=== PATIENT | male | born 1965 | race Caucasian/White ===

== ENCOUNTER 2016-08-09 16:07 | Emergency (ER) | payer MEDICAID, MEDICARE ==
--- NOTE | 2016-08-09 16:27 | Emergency Department Record ---
History of Present Illness - General Chief complaint: Swelling of legs Stated complaint: MAY HAVE BLOOD CLOT Time Seen by Provider: 08/09/16 16:16 Source: Patient Mode of Arrival: Ambulatory Limitations: No limitations - History of Present Illness Initial comments: The patient is here due to having L lower leg pain for almost 2 weeks. The pain is intermittently throbbing and located mainly over the anterior L lower leg proximal > distal. He denies any calf, posterior knee and thigh pain. The patient did notice slight swelling to the L lower leg which he states is new. He does have a hx of multiple blood clots in the L leg in the past. There is no reported CP, SOB, [place] or fever. The patient did have a pancreatitis attack 2 weeks ago which kept him in bed and that has precipitated his attacks in the past. MD Complaint: Extremity pain Onset/Timin -: Week(s) Location: Left, Lower Leg History of Same: Yes Radiation: Distal Severity scale (1-10): 2 Quality: Aching Consistency: Constant Improves with: Movement Worsens with: Rest Associated Symptoms: Denies other symptoms - Related Data Home Medications Medication Instructions Recorded Confirmed Last Taken Amiloride HCl 5 mg PO BID 07/19/13 08/09/16 06/10/15 5 MG Aspirin 81 mg PO DAILY 07/19/13 08/09/16 06/10/15 81 MG Atenolol 25 mg PO DAILY 07/19/13 08/09/16 06/10/15 25 MG Fenofibrate Nanocrystallized 145 mg PO DAILY 07/19/13 08/09/16 06/10/15 [Tricor] 145 MG Hydromorphone HCl [Dilaudid] 4 mg PO ASDIR PRN 07/19/13 08/09/16 06/10/15 4 MG Lipase/Protease/Amylase 3 tab PO WMEALS 07/19/13 08/09/16 06/10/15 [Pancrelipase 5,000 Dr Capsule] 4 TAB Metoclopramide HCl [Reglan] 20 mg PO QHS 07/19/13 08/09/16 06/10/15 20 MG Morphine Sulfate [Ms Contin] 200 mg PO BID 07/19/13 08/09/16 06/10/15 200 MG Omeprazole 20 mg PO 0700,2200 07/19/13 08/09/16 06/10/15 20 MG Ondansetron HCl [Zofran] 8 mg PO BID 07/19/13 08/09/16 06/10/15 8 MG Potassium Citrate [Potassium 20 meq PO QAM 07/19/13 08/09/16 06/10/15 Citrate ER] 30 MEQ Prochlorperazine Maleate 5 mg PO BID 07/19/13 08/09/16 06/10/15 5 MG Morphine Sulfate [Ms Contin] 60 mg PO BID 07/21/13 08/09/16 06/10/15 60 MG Previous Rx's Medication Instructions Recorded Ondansetron [Zofran Odt] 4 mg PO Q8H #14 tab.rapdis 11/24/14 Allergies Allergy/AdvReac Type Severity Reaction Status Date / Time fentanyl [From Duragesic] AdvReac Severe HYPERSENSIT Verified 08/09/16 16:15 IVITY Travel Screening - Travel/Exposure Within Last 30 Days Have you traveled within the last 30 days?: No Review of Systems Constitutional: Denies: Chills, Fever Eyes: Denies: Eye discharge ENT: Denies: Congestion Respiratory: Denies: Cough, Dyspnea Past Medical History - SOCIAL HISTORY Smoking Status: Never smoker Alcohol Use: None Drug Use: None - RESPIRATORY Hx Respiratory Disorders: No - CARDIOVASCULAR Hx Cardio Disorders: Yes Hx Deep Vein Thrombosis: Yes - NEURO Hx Neuro Disorders: No - GI Hx GI Disorders: Yes Hx Abdominal Pain: Yes Hx Nausea/Vomiting: Yes Hx Pancreatitis: Yes Comment:: pancreatitis - Hx Genitourinary Disorders: Yes Hx Kidney Stones: Yes - ENDOCRINE Hx Endocrine Disorders: No - MUSCULOSKELETAL Hx Musculoskeletal Disorders: No - PSYCH Hx Psych Problems: Yes Hx Depression: Yes - HEMATOLOGY/ONCOLOGY Hx Hematology/Oncology Disorders: No Family Medical History Any Significant Family History?: Yes Hx Alcohol Use: Father Hx Anxiety: Mother Hx Cancer: Grandparents Hx Heart Disease: Father Hx HTN: Grandparents Physical Exam - General General Appearance: Alert, Oriented x3, Cooperative, No acute distress - Head Head exam: Atraumatic, Normocephalic, Normal inspection - Eye Eye exam: Normal appearance, PERRL - Neck Neck exam: Normal inspection, Full ROM. negative: Tenderness - Respiratory Respiratory exam: Normal lung sounds bilaterally. negative: Respiratory distress - Cardiovascular Cardiovascular Exam: Regular rate, Normal rhythm, Normal heart sounds - GI/Abdominal GI/Abdominal exam: Soft, Normal bowel sounds. negative: Tenderness - Extremities Extremities exam: Normal inspection (There may be trace L lower extremity edema compared to the R but it is quite subtle.), Full ROM, Normal capillary refill, Other (The L lower leg is NVI with normal pulses.). negative: Calf tenderness, Joint swelling, Pedal edema, Tenderness (There is no thigh, posterior knee or calf tenderness.) Course Vital Signs 08/09/16 16:10 Temperature 98.5 F Pulse Rate 63 Respiratory 20 Rate Blood Pressure 139/79 Pulse Ox 99 - Reevaluation(s) Reevaluation #1: The patient is doing very well at this time. His leg is presently not painful. I did explain to him the Doppler test does NOT demonstrate a DVT. He is to continue his regular pain medicines and see his PCP next week if needed. 08/09/16 17:51 Medical Decision Making - Data Complexity MDM Data: X-Ray Ordered and/or Reviewed - Radiology Data Radiology results: Report reviewed (L leg Doppler: Neg) Disposition Disposition: Discharge Clinical Impression: Leg pain, left Disposition: Home, Self-Care Condition: (1) Good Instructions: Leg Pain (ED) Additional Instructions: Please continue your regular pain medicines as needed. Please see your PCP if needed next week if not better. Return to the ER for any increasing pain, swelling, fever or redness. Forms: Patient Portal Access Time of Disposition: 17:51
--- NOTE | 2016-08-12 11:17 | US VENOUS DOPPLER REPORT ---
DATE: 08/09/2016 at 4:28 p.m. EXAM: VENOUS DOPPLER ULTRASOUND OF THE LOWER LOWER EXTREMITY. HISTORY: THROBBING PAIN IN THE LEFT LEG. HISTORY OF DVT. TECHNIQUE: Venous Doppler ultrasound of the left lower extremity was performed using color flow and spectral analysis Doppler. Compression and flow augmentation maneuvers were used as well in the thigh and popliteal regions. COMPARISON: No prior venous Doppler ultrasound with which to compare. FINDINGS: Venous Doppler ultrasound of the left lower extremity is negative. No DVT identified from the inguinal region down to the ankle. Flow augmentation and compressibility were evident in the thigh and popliteal regions. IMPRESSION: NEGATIVE VENOUS DOPPLER ULTRASOUND OF THE LEFT LOWER EXTREMITY WITH NO DVT IDENTIFIED. JOB NUMBER: [id number] [facility]
== END 2016-08-09 17:57 | disposition home or self-care (01) ==
LOC: ER 16:07
DX: M79.669 Pain in unspecified lower leg (principal)
CPT/HCPCS: 99283

== ENCOUNTER 2017-02-12 00:45 | Inpatient (IN) | payer MEDICARE ==
[~2017-02-12 00:45] MED LIST: 0.9 % SODIUM CHLORIDE 1000ML 1,000 ML IV SCH; ONDANSETRON HCL IV 4 MG/2 ML VIAL IVP ONE
[2017-02-12] MEDS ORDERED: HYDROMORPHONE HCL 1 MG/ML SYRINGE IVP ONE ×2 (00:55→01:50)
--- NOTE | 2017-02-12 00:59 | Emergency Department Record ---
History of Present Illness - General Stated Complaint: PANCREATITIS Time Seen by Provider: 02/12/17 00:55 Source: Patient Mode of Arrival: EMS Limitations: No limitations - History of Present Illness Initial Comments: 51 yo male presents to ED for evaluation of nausea, vomiting, and abdominal pain symptoms that began approximately 3 days ago. Patient reports similar symptoms previously related to pancreatitis. Patient reports that his chronic pancreatitis results from CF, reports previous cholecystectomy, and does not drink alcohol. Patient denies fevers, chills, or other recent illness. MD Complaint: Abdominal pain Onset/Timin -: Days(s) Location: Epigastric Radiation: None Migration to: No migration Severity: Moderate Quality: Sharp Consistency: Constant Improves With: Nothing Worsens With: Nothing Associated Symptoms: Nausea, Vomiting - Related Data Previous Rx's Medication Instructions Recorded Ondansetron [Zofran Odt] 4 mg PO Q8H #14 tab.rapdis 11/24/14 Allergies Allergy/AdvReac Type Severity Reaction Status Date / Time fentanyl [From Duragesic] AdvReac Severe HYPERSENSIT Verified 08/09/16 16:15 IVITY Review of Systems Constitutional: Denies: Chills, Fever, Malaise, Night sweats Eyes: Denies: Eye discharge, Eye pain ENT: Denies: Congestion, Ear pain, Epistaxis Respiratory: Denies: Cough, Dyspnea Cardiovascular: Denies: Chest pain, Dyspnea on exertion Endocrine: Denies: Fatigue, Heat or cold intolerance Gastrointestinal: Reports: Abdominal pain, Nausea, Vomiting. Denies: Constipation Genitourinary: Denies: Incontinence, Retention Musculoskeletal: Denies: Arthralgia, Back pain, Gout, Joint swelling Skin: Denies: Bruising, Change in color Neurological: Denies: Abnormal gait, Confusion, Headache, Tingling Psychiatric: Denies: Anxiety Hematological/Lymphatic: Denies: Anemia, Blood Clots Past Medical History - SOCIAL HISTORY Smoking Status: Never smoker Drug Use: None - RESPIRATORY Hx Respiratory Disorders: No - CARDIOVASCULAR Hx Cardio Disorders: Yes Hx Deep Vein Thrombosis: Yes - NEURO Hx Neuro Disorders: No - GI Hx GI Disorders: Yes Hx Abdominal Pain: Yes Hx Nausea/Vomiting: Yes Hx Pancreatitis: Yes Comment:: pancreatitis - Hx Genitourinary Disorders: Yes Hx Kidney Stones: Yes - ENDOCRINE Hx Endocrine Disorders: No - MUSCULOSKELETAL Hx Musculoskeletal Disorders: No - PSYCH Hx Psych Problems: Yes Hx Depression: Yes - HEMATOLOGY/ONCOLOGY Hx Hematology/Oncology Disorders: No Family Medical History Hx Alcohol Use: Father Hx Anxiety: Mother Hx Cancer: Grandparents Hx Heart Disease: Father Hx HTN: Grandparents Physical Exam - General General Appearance: Alert, Oriented x3, Cooperative, Moderate distress Limitations: No limitations - Head Head exam: Atraumatic, Normocephalic, Normal inspection Head exam detail: negative: Abrasion, Contusion, Padgett's sign, General tenderness, Hematoma, Laceration - Eye Eye exam: Normal appearance. negative: Conjunctival injection, Periorbital swelling, Periorbital tenderness, Scleral icterus - ENT Ear exam: negative: Auricular hematoma, Auricular trauma Nasal Exam: negative: Active bleeding, Discharge, Dried blood, Foreign body Mouth exam: negative: Drooling, Laceration, Muffled voice, Tongue elevation - Neck Neck exam: Normal inspection. negative: Meningismus, Tenderness - Respiratory Respiratory exam: Normal lung sounds bilaterally. negative: Respiratory distress, Rhonchi, Stridor, Wheezes - Cardiovascular Cardiovascular Exam: Regular rate, Normal rhythm, Normal heart sounds - GI/Abdominal GI/Abdominal exam: Soft, Tenderness (TTP epigastrtic region, the reaminder of the abdominal examination is benign.). negative: Pulsatile mass, Rebound, Rigid - Rectal Rectal exam: Deferred - exam: Deferred - Extremities Extremities exam: Normal inspection. negative: Calf tenderness, Pedal edema, Tenderness - Back Back exam: Denies: CVA tenderness (R), CVA tenderness (L) - Neurological Neurological exam: Alert, Normal gait, Oriented X3 - Psychiatric Psychiatric exam: Normal affect, Normal mood - Skin Skin exam: Other (Ashen appearance on examination) Type of lesion: negative: abrasion Course - Reevaluation(s) Reevaluation #1: 02/12/17 01:39 Labs reviewed, Potassium 2.9, Lipase 91. Labs are otherwise grossly unremarkable for an acute process. Potassium ordered to replace both orally and intravenously. Patient reports improvement in his symptoms overall. Patient also reports that he has been unable to keep his chronic pain medication down for the past 3 days , will admit for further evaluation. Medical Decision Making - Lab Data Result diagrams: 02/12/17 01:17 02/12/17 01:17 Disposition Disposition: Admit Clinical Impression: Opiate withdrawal Abdominal pain Qualifiers: Abdominal location: epigastric Qualified Code(s): R10.13 - Epigastric pain Nausea & vomiting Qualifiers: Vomiting type: unspecified Vomiting Intractability: non-intractable Qualified Code(s): R11.2 - Nausea with vomiting, unspecified Chronic pancreatitis Qualifiers: Pancreatitis type: unspecified pancreatitis type Qualified Code(s): K86.1 - Other chronic pancreatitis Disposition: Still a Patient at [facility] Decision to Admit: Admit from ER Decision to Admit Date: 02/12/17 Decision to Admit Time: : Condition: (2) Stable Time of Disposition: :42 Quality - Quality Measures Quality Measures: N/A - Blood Pressure Screening Does Patient Have Any of the Following: No Blood Pressure Classification: Hypertensive Reading Systolic Measurement: 153 Diastolic Measurement: 70 Screening for High Blood Pressure: < First Hypertensive BP, F/U Documented > [ [id number]] First Hypertensive Follow-up Interventions: Referral to alternative/primary care provider.
[2017-02-12 01:21] LABS: BASO % 0.2 % (0-6); EOS % 0.2 % (0-6); GRAN % 71.2 % (47-80); HEMATOCRIT 39.8 % (42.0-52.0); HEMOGLOBIN 13.9 gm/dl (14.0-18.0); LYMPH % 20.3 % (16-45); MEAN CELL VOLUME 86.1 fl (81-97); MEAN CORPUSCULAR HGB CONC 34.9 g/dl (32-36); MEAN PLATELET VOLUME 10.4 fl (7.4-10.4); MONO % 8.1 % (0-9); PLATELET COUNT 237 K/uL (130-400); RED BLOOD COUNT 4.62 M/uL (4.40-5.70); RED CELL DISTRIBUTION WIDTH 13.2 % (11.5-14.5); WHITE BLOOD COUNT W/O DIFF 4.9 K/uL (4.2-12.2)
[2017-02-12 01:30] LABS: BLOOD UREA NITROGEN 20 mg/dL (6-20); CREATININE 0.8 mg/dL (0.7-1.2); EST GLOMERULAR FILTRATION RATE > 60 mL/min
[2017-02-12 01:32] LABS: GLUCOSE,RANDOM 132 mg/dL (74-109)
[2017-02-12] MEDS ORDERED: SOD CHLOR 0.9% WITH KCL 40MEQ 40 MEQ/1,000 ML IV.SOLN IV ONE (01:34)
[2017-02-12] MEDS ORDERED: POTASSIUM CHLORIDE 20 MEQ TABLET PO ONE (01:34)
[2017-02-12 01:35] LABS: ALB/GLOB RATIO 1.7 (1.1-1.8); ALBUMIN 4.4 g/dL (4.0-5.0); ALKALINE PHOSPHATASE 45 U/L (40-129); ALT/SGPT 16 U/L (<41); AST/SGOT 22 U/L (10.0-50.0); LIPASE 91 U/L (13-60)
[2017-02-12] MEDS: 0.9 % SODIUM CHLORIDE 1000ML 1,000 ML IV PRN ×3 (02:37→18:01)
[2017-02-12] MEDS: HYDROMORPHONE HCL 1 MG/ML SYRINGE IVP PRN ×3 (04:02→08:13)
[2017-02-12] MEDS: METOCLOPRAMIDE HCL 10 MG/2 ML VIAL IVP PRN ×2 (04:59→20:18)
--- NOTE | 2017-02-12 07:16 | History & Physical ---
History of Present Illness - Date of Service Date of Service for History & Physical: 02/12/17 - History of Present Illness Admitting Diagnosis: Nausea/vomiting. Chronic pancreatitis. Opiate withdrawal. Hypokalemia History of Present Illness: Mr. Ortega is a 51 y/o male with history of cystic fibrosis who presents with a 4 day history of nausea, vomiting and abdominal pain. The patient has had 3 -4 episodes of clear non-bloody vomitous which he says has not been controlled even with his daily use of Reglan. The patient has been unable to keep any of his pain medication or hypertension medications down and reports significant body pain. He denies fevers, chills, headache, diarrhea or loss of appetite. The patient has been admitted in the past with similar complaint and has a noted history of chronic pancreatitis as a result of his cystic fibrosis. He is on a significant amount of narcotic pain medication at home and has a high daily requirement. On admission the patient was noted be have hypokalemia but otherwise labs were unremarkable. The patient was started on IV fluids, pain medications and Reglan. He is admitted for electrolyte repletion and acute pain management. On bedside examination this morning the patient appears in moderate distress and is complaining of abdominal pain. Travel Screening - Travel/Exposure Within Last 30 Days Have you traveled within the last 30 days?: No - Travel/Exposure Within Last Year Have you traveled outside the [place] in the last year?: No - Additonal Travel Details Have you been exposed to anyone with a communicable illness?: No - Travel Symptoms Symptom Screening: Vomiting, Stomach Pain, Chills Review of Systems Constitutional: Denies: Chills, Fever, Malaise, Night sweats Eyes: Denies: Eye discharge, Eye pain ENT: Denies: Congestion, Ear pain, Epistaxis Respiratory: Denies: Cough, Dyspnea Cardiovascular: Denies: Chest pain, Dyspnea on exertion Endocrine: Denies: Fatigue, Heat or cold intolerance Gastrointestinal: Reports: Abdominal pain, Nausea, Vomiting. Denies: Constipation Genitourinary: Denies: Incontinence, Retention Musculoskeletal: Denies: Arthralgia, Back pain, Gout, Joint swelling Skin: Denies: Bruising, Change in color Neurological: Denies: Abnormal gait, Confusion, Headache, Tingling Psychiatric: Denies: Anxiety Hematological/Lymphatic: Denies: Anemia, Blood Clots Past Medical History - SOCIAL HISTORY Smoking Status: Never smoker Alcohol Use: None Drug Use: None - RESPIRATORY Hx Respiratory Disorders: No - CARDIOVASCULAR Hx Cardio Disorders: Yes Hx Deep Vein Thrombosis: Yes - NEURO Hx Neuro Disorders: No - GI Hx GI Disorders: Yes Hx Abdominal Pain: Yes Hx Nausea/Vomiting: Yes Hx Pancreatitis: Yes Comment:: pancreatitis - Hx Genitourinary Disorders: Yes Hx Kidney Stones: Yes - ENDOCRINE Hx Endocrine Disorders: No Hx Diabetes: No Hx Thyroid Disease: No - MUSCULOSKELETAL Hx Musculoskeletal Disorders: No - PSYCH Hx Psych Problems: Yes Hx Depression: Yes - HEMATOLOGY/ONCOLOGY Hx Hematology/Oncology Disorders: No Family Medical History Any Significant Family History?: Yes Family Hx Comment (NOT TO BE USED IN PLACE OF ITEMS BELOW): DAUGHTER-CF carrier Hx Alcohol Use: Father Hx Anxiety: Mother Hx Cancer: Grandparents Hx Heart Disease: Father Hx HTN: Grandparents H&P Meds/Allergies - Allergies Allergies: Allergies Allergy/AdvReac Type Severity Reaction Status Date / Time fentanyl [From Duragesic] AdvReac Severe HYPERSENSIT Verified 08/09/16 16:15 IVITY - Home Medications Home Medications Medication Instructions Recorded Confirmed Last Taken Citalopram Hydrobromide [Celexa] 10 mg PO DAILY 02/12/17 02/12/17 Unknown Potassium Citrate [Potassium 40 meq PO QHS 02/12/17 02/12/17 Unknown Citrate ER] - Active Medications Active Medications: Current Medications Hydromorphone HCl (Dilaudid) 1 mg IVP Q2HR PRN PRN Reason: Abdominal Pain Last Admin: 02/12/17 06:02 Dose: 1 mg Sodium Chloride () 1,000 mls @ 125 mls/hr IV .Q8H PRN PRN Reason: LARGE VOLUME IV Last Admin: 02/12/17 02:37 Dose: 125 mls/hr Metoclopramide HCl (Reglan) 10 mg IVP Q6H PRN PRN Reason: NAUSEA Last Admin: 02/12/17 04:59 Dose: 10 mg Ondansetron HCl (Zofran) 4 mg IVP Q4H PRN PRN Reason: NAUSEA Physical Exam - Vital Signs Vital Signs: Vital Signs - Last 24 Hrs Temp Pulse Resp BP Pulse Ox 02/12/17 04:05 98.8 F 74 18 119/77 96 12/12/17 02:30 61 20 02/12/17 02:10 98.4 F 61 20 127/81 96 - General General Appearance: Alert, Oriented x3, Cooperative, Moderate distress Limitations: No limitations - Head Head exam: Atraumatic, Normocephalic, Normal inspection Head exam detail: negative: Abrasion, Contusion, Padgett's sign, General tenderness, Hematoma, Laceration - Eye Eye exam: Normal appearance. negative: Conjunctival injection, Periorbital swelling, Periorbital tenderness, Scleral icterus - ENT Ear exam: negative: Auricular hematoma, Auricular trauma Nasal Exam: negative: Active bleeding, Discharge, Dried blood, Foreign body Mouth exam: negative: Drooling, Laceration, Muffled voice, Tongue elevation - Neck Neck exam: Normal inspection. negative: Meningismus, Tenderness - Respiratory Respiratory exam: Normal lung sounds bilaterally. negative: Respiratory distress, Rhonchi, Stridor, Wheezes - Cardiovascular Cardiovascular Exam: Regular rate, Normal rhythm, Normal heart sounds - GI/Abdominal GI/Abdominal exam: Soft, Tenderness (TTP epigastrtic region, the reaminder of the abdominal examination is benign.). negative: Pulsatile mass, Rebound, Rigid - Rectal Rectal exam: Deferred - exam: Deferred - Extremities Extremities exam: Normal inspection. negative: Calf tenderness, Pedal edema, Tenderness - Back Back exam: Denies: CVA tenderness (R), CVA tenderness (L) - Neurological Neurological exam: Alert, Normal gait, Oriented X3 - Psychiatric Psychiatric exam: Normal affect, Normal mood - Skin Skin exam: Other (Ashen appearance on examination) Type of lesion: negative: abrasion Results - Labs Result Diagrams: 02/12/17 01:17 02/12/17 01:17 VTE H&P Assessment - Risk for VTE Risk for VTE: No Risk Level: Low Risk Assessment Date: 02/12/17 Risk Assessment Time: 10:07 VTE Orders Placed or Will Be Placed: No VTE Reason for No Prophylaxis: Not Indicated Plan - Detailed Diagnosis and Plan (1) Nausea & vomiting Current Visit: Yes Status: Acute Qualifiers: Vomiting type: unspecified Vomiting Intractability: non-intractable Qualified Code(s): R11.2 - Nausea with vomiting, unspecified Base Code: R11.2 - NAUSEA WITH VOMITING, UNSPECIFIED Comment: - pt w/ intractable n/v over the past 4 days. - cont IVF Nacl 0.9% @ 125mL/hr, Reglan 10mg Q6H PRN, Zofran 4mg Q4H PRN - advance diet as tolerated (2) Acute on chronic pancreatitis Current Visit: Yes Status: Acute Base Code: K85.90 - ACUTE PANCREATITIS WITHOUT NECROSIS OR INFECTION, UNSP; K86.1 - OTHER CHRONIC PANCREATITIS Comment: - pt has hx of pancreatitis as a result of CF. No hx of ETOH Hx of cholecystectomy. - lipase 91, cont w/ IVF @ 125mL/hr, Morphine 10mg IV Q6H, Dilaudid 2mg IV Q4H, Reglan, 10mg, Zofran 4mg IV PRN, pt on pancrealipase to be resumed once he can tolerate PO. - repeat labs in the morning and advance diet as tolerated. (3) Hypokalemia, gastrointestinal losses Current Visit: Yes Status: Acute Base Code: E87.6 - HYPOKALEMIA Comment: - K+ 2.9, repleted 80 meq total in ED - recheck K+ and replete as appropriate. (4) Chronic narcotic use Current Visit: Yes Status: Acute Base Code: F11.90 - OPIOID USE, UNSPECIFIED , UNCOMPLICATED Comment: - patient on Dilaudid 4mg QID for breakthrough pain, Morphine extended release 260mg BID - ordered Diluadid 2mg Q4H, Morphine 10mg Q6H scheduled (5) Cystic fibrosis Current Visit: No Status: Chronic Base Code: E84.9 - CYSTIC FIBROSIS, UNSPECIFIED (6) Full code status Current Visit: No Status: Acute Base Code: Z78.9 - OTHER SPECIFIED HEALTH STATUS Comment: - FULL CODE - Disposition - Continuing to monitor patient's progress throughout the day. Advance diet and pain control. May need to be upgraded to inpatient based on status this afternoon.
[2017-02-12] MEDS: ONDANSETRON HCL IV 4 MG/2 ML VIAL IVP PRN ×3 (08:16→17:16)
[2017-02-12] MEDS ORDERED: HYDROMORPHONE HCL 1 MG/ML SYRINGE IVP PRN (09:43)
[2017-02-12] MEDS ORDERED: MORPHINE SULFATE 5 MG/ML PFS IVP SCH (10:00)
[2017-02-12] MEDS: HYDROMORPHONE HCL 2 MG/ML VIAL IVP SCH ×4 (10:15→22:01)
[2017-02-12] MEDS: MORPHINE SULFATE 5 MG/ML PFS IVP SCH ×2 (16:03→22:55)
--- NOTE | 2017-02-12 17:14 | Inpatient Certification ---
Inpatient Certification Admit to inpatient care: Based on my medical assessment, after consideration of patient's risk factors (age, co-morbidities and patient presenting symptoms and acuity), I expect that this patient will remain in the hospital greater than or equal to two midnights and that the services needed warrant inpatient care because: Patient Risk Factors: Intractable nausea/vomiting, dehydration Estimated length of stay: 3 The patient may reasonably be expected to be discharged or transferred to a hospital within 96 hours after admission to [facility]. Services needed: Post hospital care (if known): I certify that my determination is in accordance with my understanding of Medicare requirements for reasonable and necessary inpatient services.
[2017-02-13] MEDS: ONDANSETRON HCL IV 4 MG/2 ML VIAL IVP PRN ×2 (01:38→21:12)
[2017-02-13] MEDS: 0.9 % SODIUM CHLORIDE 1000ML 1,000 ML IV PRN ×2 (01:40→17:44)
[2017-02-13] MEDS: HYDROMORPHONE HCL 2 MG/ML VIAL IVP SCH ×6 (01:51→21:12)
[2017-02-13] MEDS: MORPHINE SULFATE 5 MG/ML PFS IVP SCH ×4 (03:47→23:56)
[2017-02-13] MEDS: METOCLOPRAMIDE HCL 10 MG/2 ML VIAL IVP PRN (05:48)
[2017-02-13] MEDS ORDERED: HYDROMORPHONE HCL 2 MG/ML VIAL IVP ONE (06:22)
[2017-02-13 07:25] LABS: BLOOD UREA NITROGEN 15 mg/dL (6-20); CREATININE 0.6 mg/dL (0.7-1.2); EST GLOMERULAR FILTRATION RATE > 60 mL/min; GLUCOSE,RANDOM 91 mg/dL (74-109)
[2017-02-13] MEDS ORDERED: POTASSIUM CHLORIDE 20 MEQ TABLET PO ONE (09:19)
[2017-02-13] MEDS ORDERED: POTASSIUM CHL 20MEQ IN 1L NS 20 MEQ/1,000 ML BAG IV ONE (09:22)
[2017-02-13] MEDS ORDERED: SOD CHLOR 0.9% WITH KCL 40MEQ 40 MEQ/1,000 ML IV.SOLN IV ONE (09:26)
[2017-02-13] MEDS ORDERED: CHLORTHALIDONE 25 MG TABLET PO SCH (10:00)
--- NOTE | 2017-02-13 10:47 | Physician Progress Note ---
Subjective - Date Date of Physician Progress Note: 02/13/17 - Subjective Subjective Comment: Patient has not vomited since yesterday and says that he still has abdominal pain. He is willing to try clear liquids and advancement of diet this morning. Location: Abdomen Severity scale (1-10): 9 Quality: Aching Consistency: Constant Improves with: Medication Worsens with: Eating Associated symptoms: negative: Nausea/vomiting Objective - Vital Signs Vital Signs: Vital Signs - Last 24 Hrs Temp Pulse Resp BP Pulse Ox 02/13/17 08:00 98.1 F 53 L 16 139/77 100 02/13/17 04:00 99.2 F 55 L 12 126/67 96 02/12/17 21:00 57 L 18 02/12/17 20:00 98.9 F 57 L 18 133/72 98 02/12/17 16:00 97 F L 61 18 119/72 96 - General General Appearance: Alert, Oriented x3, Cooperative, Moderate distress Limitations: No limitations - Head Head exam: Atraumatic, Normocephalic, Normal inspection Head exam detail: negative: Abrasion, Contusion, Padgett's sign, General tenderness, Hematoma, Laceration - Eye Eye exam: Normal appearance. negative: Conjunctival injection, Periorbital swelling, Periorbital tenderness, Scleral icterus - ENT Ear exam: negative: Auricular hematoma, Auricular trauma Nasal Exam: negative: Active bleeding, Discharge, Dried blood, Foreign body Mouth exam: negative: Drooling, Laceration, Muffled voice, Tongue elevation - Neck Neck exam: Normal inspection. negative: Meningismus, Tenderness - Respiratory Respiratory exam: Normal lung sounds bilaterally. negative: Respiratory distress, Rhonchi, Stridor, Wheezes - Cardiovascular Cardiovascular Exam: Regular rate, Normal rhythm, Normal heart sounds Peripheral Pulses: 2+: Radial (R), Radial (L), Dorsalis Pedis (R), Dorsalis Pedis (L) - GI/Abdominal GI/Abdominal exam: Soft, Tenderness (TTP epigastrtic region, the reaminder of the abdominal examination is benign.). negative: Pulsatile mass, Rebound, Rigid - Rectal Rectal exam: Deferred - exam: Deferred - Extremities Extremities exam: Normal inspection, Other (contraction of lower extremities ). negative: Calf tenderness, Pedal edema, Tenderness - Back Back exam: Denies: CVA tenderness (R), CVA tenderness (L) - Neurological Neurological exam: Alert, Normal gait, Oriented X3 - Psychiatric Psychiatric exam: Normal affect, Normal mood - Skin Skin exam: Other (Ashen appearance on examination) Type of lesion: negative: abrasion Assessment and Plan - Assessment and Plan (1) Nausea & vomiting Current Visit: Yes Status: Acute Qualifiers: Vomiting type: unspecified Vomiting Intractability: non-intractable Qualified Code(s): R11.2 - Nausea with vomiting, unspecified Base Code: R11.2 - NAUSEA WITH VOMITING, UNSPECIFIED Comment: - pt w/ intractable n/v - improved w/o nausea or vomting since yesterday. - cont IVF Nacl 0.9% @ 125mL/hr, Reglan 10mg Q6H PRN, Zofran 4mg Q4H PRN - advance diet as tolerated starting with clear liquids today. (2) Acute on chronic pancreatitis Current Visit: Yes Status: Acute Base Code: K85.90 - ACUTE PANCREATITIS WITHOUT NECROSIS OR INFECTION, UNSP; K86.1 - OTHER CHRONIC PANCREATITIS Comment: - pt has hx of pancreatitis as a result of CF. No hx of ETOH Hx of cholecystectomy. - lipase 91, cont w/ IVF @ 125mL/hr, Morphine 10mg IV Q6H, Dilaudid 2mg IV Q4H, Reglan, 10mg, Zofran 4mg IV PRN, pt on pancrealipase to be resumed once he can tolerate PO. - advance diet as tolerated and change medication to PO dosing. (3) Hypokalemia, gastrointestinal losses Current Visit: Yes Status: Acute Base Code: E87.6 - HYPOKALEMIA Comment: - K+ 2.9, repleted 80 meq total in ED - rechecked K+ 2.8 this am. Replete with 40 meQ PO and 40 meq w/ Nacl 0.9% - if cont drop despite resolution of vomiting then check for urinary losses. (4) Chronic narcotic use Current Visit: Yes Status: Acute Base Code: F11.90 - OPIOID USE, UNSPECIFIED , UNCOMPLICATED Comment: - patient on Dilaudid 4mg QID for breakthrough pain, Morphine extended release 260mg BID - ordered Diluadid 2mg Q4H, Morphine 10mg Q6H scheduled - changing to PO dosing today. - discussed with patient the need to have doses changed to oral medications as tolerated today. (5) Cystic fibrosis Current Visit: No Status: Chronic Base Code: E84.9 - CYSTIC FIBROSIS, UNSPECIFIED (6) Full code status Current Visit: No Status: Acute Base Code: Z78.9 - OTHER SPECIFIED HEALTH STATUS Comment: - FULL CODE - Disposition Disposition: - Advance diet and pain control wit PO meds today. Results - Labs Result Diagrams: 02/12/17 01:17 02/13/17 06:15 Labs Last 24 Hours: Laboratory Results - last 24 hr 02/13/17 06:15 Sodium 140 Potassium 2.8 L* Chloride 102 Carbon Dioxide 22.0 Anion Gap 16.0 BUN 15 Creatinine 0.6 L Estimated GFR > 60 Random Glucose 91 Calcium 8.2 L DVT/PE Assessment - Risk for VTE Risk for VTE: No Risk Level: Low Risk Assessment Date: 02/12/17 Risk Assessment Time: 10:07 VTE Orders Placed or Will Be Placed: No VTE Reason for No Prophylaxis: Not Indicated - Active Medicaitons Current Medications: Current Medications Hydromorphone HCl (Dilaudid) 2 mg IVP Q4H ZIGGY Last Admin: 02/13/17 10:13 Dose: 2 mg Sodium Chloride () 1,000 mls @ 125 mls/hr IV .Q8H PRN PRN Reason: LARGE VOLUME IV Last Admin: 02/13/17 01:40 Dose: 125 mls/hr Potassium Chloride/Sodium Chloride (Potassium Chl 40meq/) 40 meq in 1,000 mls @ 125 mls/hr IV NOW ONE Stop: 02/13/17 17:25 Last Admin: 02/13/17 09:38 Dose: 125 mls/hr Metoclopramide HCl (Reglan) 10 mg IVP Q6H PRN PRN Reason: NAUSEA Last Admin: 02/13/17 05:48 Dose: 10 mg Morphine Sulfate (Morphine Sulfate) 10 mg IVP Q6H ZIGGY Stop: 02/19/17 16:01 Last Admin: 02/13/17 03:47 Dose: 10 mg Ondansetron HCl (Zofran) 4 mg IVP Q4H PRN PRN Reason: NAUSEA Last Admin: 02/13/17 01:38 Dose: 4 mg Chlorthalidone 25 Mg (Tablet) 1 each PO DAILY ZIGGY Last Admin: 02/13/17 10:23 Dose: 1 each Fluoxetine 20 Mg (Tablet) 3 each PO 2200 ZIGGY Aripiprazole 2 Mg (Tablet) 1 each PO DAILY ZIGGY Omeprazole 40 Mg (Capsule) 1 each PO BID ZIGGY AMI Plan - Labs Result Diagrams: 02/12/17 01:17 02/13/17 06:15
[2017-02-13] MEDS: MORPHINE 200 MG PO SCH (21:25)
[2017-02-13] MEDS ORDERED: FLUOXETINE 20 MG PO SCH (22:00)
[2017-02-13] MEDS ORDERED: OMEPRAZOLE 40 MG CAPSULE PO SCH (22:00)
[2017-02-13] MEDS ORDERED: MORPHINE ER 30 MG TABLET PO SCH (22:00)
[2017-02-14] MEDS: 0.9 % SODIUM CHLORIDE 1000ML 1,000 ML IV PRN ×2 (02:23→10:11)
[2017-02-14] MEDS: HYDROMORPHONE HCL 2 MG/ML VIAL IVP SCH ×3 (02:28→10:12)
[2017-02-14] MEDS: MORPHINE SULFATE 5 MG/ML PFS IVP SCH ×2 (05:53→10:16)
[2017-02-14] MEDS ORDERED: PATIENT OWN MED: OMEPRAZOLE 20 MG PO SCH (10:00)
[2017-02-14] MEDS ORDERED: ARIPIPRAZOLE 2 MG TABLET PO SCH (10:00)
[2017-02-14] MEDS ORDERED: MORPHINE 30 MG PO SCH (10:00)
[2017-02-14] MEDS: MORPHINE 200 MG PO SCH (10:16)
--- NOTE | 2017-02-14 14:41 | Discharge Summary ---
Providers Discharge Summary Date: 02/18/17 Date of admission: 02/12/17 12:03 Attending physician: Wero Hendrix Physical Exam - Vital Signs Vital Signs: Vital Signs - Last 24 Hrs Temp Pulse Resp BP Pulse Ox 02/14/17 10:00 98.6 F 54 L 18 138/81 98 02/14/17 06:12 130/83 02/14/17 04:00 51 L 18 100/60 97 02/14/17 00:00 70 18 144/83 94 L 02/13/17 21:00 18 02/13/17 20:00 97.2 F L 50 L 18 122/75 96 - General General Appearance: Alert, Oriented x3, Cooperative, Moderate distress Limitations: No limitations - Head Head exam: Atraumatic, Normocephalic, Normal inspection Head exam detail: negative: Abrasion, Contusion, Padgett's sign, General tenderness, Hematoma, Laceration - Eye Eye exam: Normal appearance. negative: Conjunctival injection, Periorbital swelling, Periorbital tenderness, Scleral icterus - ENT Ear exam: negative: Auricular hematoma, Auricular trauma Nasal Exam: negative: Active bleeding, Discharge, Dried blood, Foreign body Mouth exam: negative: Drooling, Laceration, Muffled voice, Tongue elevation - Neck Neck exam: Normal inspection. negative: Meningismus, Tenderness - Respiratory Respiratory exam: Normal lung sounds bilaterally. negative: Respiratory distress, Rhonchi, Stridor, Wheezes - Cardiovascular Cardiovascular Exam: Regular rate, Normal rhythm, Normal heart sounds Peripheral Pulses: 2+: Radial (R), Radial (L), Dorsalis Pedis (R), Dorsalis Pedis (L) - GI/Abdominal GI/Abdominal exam: Soft, Tenderness (TTP epigastrtic region, the reaminder of the abdominal examination is benign.). negative: Pulsatile mass, Rebound, Rigid - Rectal Rectal exam: Deferred - exam: Deferred - Extremities Extremities exam: Normal inspection, Other (contraction of lower extremities ). negative: Calf tenderness, Pedal edema, Tenderness - Back Back exam: Denies: CVA tenderness (R), CVA tenderness (L) - Neurological Neurological exam: Alert, Normal gait, Oriented X3 - Psychiatric Psychiatric exam: Normal affect, Normal mood - Skin Skin exam: Other (Ashen appearance on examination) Type of lesion: negative: abrasion Hospitalization - Hospitalization Admission Diagnosis: Nausea/vomiting. Chronic pancreatitis. Opiate withdrawal. Hypokalemia - Problem List/Discharge Diagnosis (1) Nausea & vomiting Status: Acute Discharge Diagnosis: Vomiting type: unspecified Vomiting Intractability: non-intractable Qualified Code(s): R11.2 - Nausea with vomiting, unspecified Base Code: R11.2 - NAUSEA WITH VOMITING, UNSPECIFIED Comment: - pt w/ intractable n/v - improved w/o nausea or vomting since yesterday. - cont IVF Nacl 0.9% @ 125mL/hr, Reglan 10mg Q6H PRN, Zofran 4mg Q4H PRN - advance diet as tolerated starting with clear liquids today. (2) Acute on chronic pancreatitis Status: Acute Base Code: K85.90 - ACUTE PANCREATITIS WITHOUT NECROSIS OR INFECTION, UNSP; K86.1 - OTHER CHRONIC PANCREATITIS Comment: - pt has hx of pancreatitis as a result of CF. No hx of ETOH Hx of cholecystectomy. - lipase 91, cont w/ IVF @ 125mL/hr, Morphine 10mg IV Q6H, Dilaudid 2mg IV Q4H, Reglan, 10mg, Zofran 4mg IV PRN, pt on pancrealipase to be resumed once he can tolerate PO. - advance diet as tolerated and change medication to PO dosing. (3) Hypokalemia, gastrointestinal losses Status: Acute Base Code: E87.6 - HYPOKALEMIA Comment: - K+ 2.9, repleted 80 meq total in ED - rechecked K+ 2.8 this am. Replete with 40 meQ PO and 40 meq w/ Nacl 0.9% - if cont drop despite resolution of vomiting then check for urinary losses. (4) Chronic narcotic use Status: Acute Base Code: F11.90 - OPIOID USE, UNSPECIFIED, UNCOMPLICATED Comment: - patient on Dilaudid 4mg QID for breakthrough pain, Morphine extended release 260mg BID - ordered Diluadid 2mg Q4H, Morphine 10mg Q6H scheduled - changing to PO dosing today. - discussed with patient the need to have doses changed to oral medications as tolerated today. (5) Cystic fibrosis Status: Chronic Base Code: E84.9 - CYSTIC FIBROSIS, UNSPECIFIED (6) Full code status Status: Acute Base Code: Z78.9 - OTHER SPECIFIED HEALTH STATUS Comment: - FULL CODE - Disposition - Advance diet and pain control wit PO meds today. - Hospitalization Course Disposition: Home, Self-Care Hospital Course: Mr. Ortega is a 51 y/o male with history of cystic fibrosis who presents with a 4 day history of nausea, vomiting and abdominal pain. The patient has had 3 -4 episodes of clear non-bloody vomitous which he says has not been controlled even with his daily use of Reglan. The patient has been unable to keep any of his pain medication or hypertension medications down and reports significant body pain. He denies fevers, chills, headache, diarrhea or loss of appetite. The patient has been admitted in the past with similar complaint and has a noted history of chronic pancreatitis as a result of his cystic fibrosis. He is on a significant amount of narcotic pain medication at home and has a high daily requirement. On admission the patient was noted be have hypokalemia but otherwise labs were unremarkable. The patient was started on IV fluids, pain medications and Reglan. He is admitted for electrolyte repletion and acute pain management. On bedside examination this morning the patient appears in moderate distress and is complaining of abdominal pain. The patient's hospital course over the three days showed gradual improvement with pain medication and bowel rest. The patient is on high doses of narcotics primarily MS Contin 260mg daily as per his PCP. The 200mg tab was not on formulary here and the patient remained on IV morphine with transition to PO medications as tolerated. The patient's diet was advanced to clear liquids which he tolerated but still had some abdominal pain on day #2. He was able to take in full liquids and a soft diet on the morning of day #3 and by lunch time was able to eat a regular diet. Abnormal Labs: Abnormal Lab Results 02/13/ Range/Units 06:15 Potassium 2.8 L* (3.4-4.5) mmol/L Creatinine 0.6 L (0.7-1.2) mg/dL Calcium 8.2 L (8.6-10.0) mg/dL Condition at Discharge: (2) Stable Discharge Medications - Discharge Medications Home Medications: Ambulatory Orders Amiloride HCl 5 mg PO BID 07/19/13 [Last Taken 06/10/15 5 MG] Aspirin 81 mg PO DAILY 07/19/13 [Last Taken 06/10/15 81 MG] Atenolol 25 mg PO DAILY 07/19/13 [Last Taken 06/10/15 25 MG] Fenofibrate Nanocrystallized [Tricor] 145 mg PO DAILY 07/19/13 [Last Taken 06/09 145 MG] Hydromorphone HCl [Dilaudid] 4 mg PO QID PRN 07/19/13 [Last Taken 06/10/15 4 MG] Lipase/Protease/Amylase [Pancrelipase 5,000 Dr Capsule] 3 tab PO WMEALS [Last Taken 06/10/15 4 TAB] Metoclopramide HCl [Reglan] 20 mg PO QHS 07/19/13 [Last Taken 06/10/15 20 MG] Morphine Sulfate [Ms Contin] 200 mg PO BID 07/19/13 [Last Taken 06/10/15 200 MG] Omeprazole 20 mg PO 0700,2200 07/19/13 [Last Taken 06/10/15 20 MG] Ondansetron HCl [Zofran] 8 mg PO BID 07/19/13 [Last Taken 06/10/15 8 MG] Potassium Citrate [Potassium Citrate ER] 20 meq PO QAM 07/19/13 [Last Taken 10/17 30 MEQ] Prochlorperazine Maleate 5 mg PO BID 07/19/13 [Last Taken 06/10/15 5 MG] Morphine Sulfate [Ms Contin] 60 mg PO BID 07/21/13 [Last Taken 06/10/15 60 MG] Citalopram Hydrobromide [Celexa] 10 mg PO DAILY 02/12/17 [Last Taken Unknown] Potassium Citrate [Potassium Citrate ER] 40 meq PO QHS 02/12/17 [Last Taken Unknown] Discharge Plan - Discharge Instructions Activity at Discharge: Resume Usual Activities As Tolerated Diet at Discharge: Regular Diet Instructions: Pancreatitis (DC) Additional Instructions: Written work release provided Continue home medications followup with primary care physician Quality Measures - Quality Measures Quality Measures: Documentation of Current Medications in Medical Record, Screening for High Blood Pressure and F/U Documented - Current Medications Quality Measure: Measure #130: Documentation of Current Medications Documentation of Current Medications: <Current Medications Documented/Reviewed> [G8427] - Blood Pressure Screening Quality Measure: Screening for High Blood Pressure and Follow-Up Documented Does Patient Have Any of the Following: Active Dx of HTN Blood Pressure Classification: Pre-Hypertensive BP Reading Systolic Measurement: 138 Diastolic Measurement: 81 Screening for High Blood Pressure: < Pre-Hypertensive BP, F/U Documented > [ G8950] Pre-Hypertensive Follow-up Interventions: Follow-up with rescreen every year. - Elder Abuse Suspicion Index EASI Reference Information: Page MARSHALL, Rox Capps, Emperatriz Amezquita, Jim Potter.Development and validation of a tool to assist physicians identification of elder abuse: The Elder Abuse Suspicion Index (EASI ). Journal of Elder Abuse and Neglect, 2008; 20 (3): 276-300.
== END 2017-02-14 14:47 | disposition home or self-care (01) | DRG 439 ==
LOC: ER 00:45 → MEDSURG 02:01 → OBSVTOIN 12:03
PROVIDERS: ADMIT Internal Medicine; ATTEND Internal Medicine
DX: K85.90 Acute pancreatitis without necrosis or infection, unspecified (principal); E84.9 Cystic fibrosis, unspecified; F11.23 Opioid dependence with withdrawal; K86.1 Other chronic pancreatitis; R11.2 Nausea with vomiting, unspecified; E87.6 Hypokalemia; I10 Essential (primary) hypertension; F11.90 Opioid use, unspecified, uncomplicated
CPT/HCPCS: 83690; 85025; 80053; J2405 ×2; J2270; J1170 ×6; 80048; 96374; 96375; 99223; 99233; 99239; 99285; J2765; J7030

== ENCOUNTER 2017-07-08 07:25 | Inpatient (IN) | payer MEDICARE ==
[2017-07-08] MEDS ORDERED: ONDANSETRON HCL IV 4 MG/2 ML VIAL IVP ONE ×2 (07:40→09:59)
[2017-07-08] MEDS ORDERED: HYDROMORPHONE HCL 2 MG/ML VIAL IVP ONE ×2 (07:40→09:29)
--- NOTE | 2017-07-08 07:43 | Emergency Department Record ---
History of Present Illness - General Chief complaint: Vomiting Stated complaint: VOMITING Time Seen by Provider: 07/08/17 07:40 Source: Patient Mode of Arrival: Ambulatory Limitations: No limitations - History of Present Illness Initial comments: 51 yo male presents to ED for evaluation of nausea, vomiting, and abdominal pain symptoms that began 3 days ago. Patient reports a history of pancreatitis due to CF, does report numerous similar episodes. Patient denies fevers, chills , or recent illness. Patient is s/p cholecystectomy, denies alcohol use. MD complaint: Abdominal pain, Nausea, Vomiting Onset/Timin -: Days(s) Description of Vomiting: Bilious Associated Abdominal Pain: Yes Radiation: None Severity: Moderate Quality: Aching Improves with: None Worsens with: None Context: Other Associated Symptoms: Other - Related Data Allergies Allergy/AdvReac Type Severity Reaction Status Date / Time fentanyl [From Duragesic] AdvReac Severe HYPERSENSIT Verified 07/08/17 07:36 IVITY Travel Screening - Travel/Exposure Within Last 30 Days Have you traveled within the last 30 days?: No - Travel/Exposure Within Last Year Have you traveled outside the [place] in the last year?: No - Additonal Travel Details Have you been exposed to anyone with a communicable illness?: No - Travel Symptoms Symptom Screening: None Review of Systems Constitutional: Denies: Chills, Fever, Malaise, Night sweats Eyes: Denies: Eye discharge, Eye pain ENT: Denies: Congestion, Ear pain, Epistaxis Respiratory: Denies: Cough, Dyspnea Cardiovascular: Denies: Chest pain, Dyspnea on exertion Endocrine: Denies: Fatigue, Heat or cold intolerance Gastrointestinal: Reports: Abdominal pain, Nausea, Vomiting. Denies: Constipation Genitourinary: Denies: Incontinence, Retention Musculoskeletal: Denies: Arthralgia, Back pain, Gout, Joint swelling Skin: Denies: Bruising, Change in color Neurological: Denies: Abnormal gait, Confusion, Headache, Seizure Psychiatric: Denies: Anxiety Hematological/Lymphatic: Denies: Anemia, Blood Clots Past Medical History - SOCIAL HISTORY Smoking Status: Never smoker Alcohol Use: None Drug Use: None - RESPIRATORY Hx Respiratory Disorders: No - CARDIOVASCULAR Hx Cardio Disorders: Yes Hx Deep Vein Thrombosis: Yes - NEURO Hx Neuro Disorders: No - GI Hx GI Disorders: Yes Hx Abdominal Pain: Yes Hx Nausea/Vomiting: Yes Hx Pancreatitis: Yes Comment:: pancreatitis - Hx Genitourinary Disorders: Yes Hx Kidney Stones: Yes - ENDOCRINE Hx Endocrine Disorders: No Hx Diabetes: No Hx Thyroid Disease: No - MUSCULOSKELETAL Hx Musculoskeletal Disorders: No - PSYCH Hx Psych Problems: Yes Hx Depression: Yes - HEMATOLOGY/ONCOLOGY Hx Hematology/Oncology Disorders: No Family Medical History Any Significant Family History?: No Hx Alcohol Use: Father Hx Anxiety: Mother Hx Cancer: Grandparents Hx Heart Disease: Father Hx HTN: Grandparents Physical Exam - General General Appearance: Alert, Oriented x3, Cooperative, Moderate distress Limitations: No limitations - Head Head exam: Atraumatic, Normocephalic, Normal inspection Head exam detail: negative: Abrasion, Contusion, General tenderness, Hematoma, Laceration - Eye Eye exam: Normal appearance. negative: Conjunctival injection, Periorbital swelling, Periorbital tenderness, Scleral icterus - ENT Ear exam: negative: Auricular hematoma, Auricular trauma Nasal Exam: negative: Active bleeding, Discharge, Dried blood, Foreign body Mouth exam: negative: Drooling, Laceration, Tongue elevation - Neck Neck exam: Normal inspection. negative: Meningismus, Tenderness - Respiratory Respiratory exam: Normal lung sounds bilaterally. negative: Rales, Respiratory distress, Rhonchi, Stridor - Cardiovascular Cardiovascular Exam: Regular rate, Normal rhythm, Normal heart sounds - GI/Abdominal GI/Abdominal exam: Soft. negative: Rebound, Rigid, Tenderness - Rectal Rectal exam: Deferred - exam: Deferred - Extremities Extremities exam: Normal inspection. negative: Calf tenderness, Pedal edema, Tenderness - Back Back exam: Denies: CVA tenderness (R), CVA tenderness (L) - Neurological Neurological exam: Alert, Normal gait, Oriented X3 - Psychiatric Psychiatric exam: Normal affect, Normal mood - Skin Skin exam: Normal color. negative: Abrasion Type of lesion: negative: abrasion Course Vital Signs 07/08/17 07:31 Temperature 99.3 F Pulse Rate 102 H Respiratory 20 Rate Blood Pressure 134/87 Pulse Ox 97 - Reevaluation(s) Reevaluation #1: 07/08/17 09:01 Labs reviewed, AG 24, Potassium 2.4. Awaiting Lipase level. IV potassium and magnesium were ordered to infuse for hypokalemia symptoms. Reevaluation #2: 07/08/17 09:29 Lipase resulted at 54. Patient was reassessed, continues to be ill appearing. Will admit for further evaluation to control his nausea/vomiting symptoms and electrolyte replacement. Case was discussed with Dr. Ortega, will accept admission at this time. Medical Decision Making - Lab Data Result diagrams: 07/08/17 08:09 07/08/17 08:09 Disposition Disposition: Admit Clinical Impression: Pancreatitis Qualifiers: Chronicity: acute Pancreatitis type: unspecified pancreatitis type Acute pancreatitis complication: unspecified Qualified Code(s): K85.90 - Acute pancreatitis without necrosis or infection, unspecified Nausea & vomiting Qualifiers: Vomiting type: unspecified Vomiting Intractability: intractable Qualified Code( s): R11.2 - Nausea with vomiting, unspecified Disposition: Still a Patient at [facility] Decision to Admit: Admit from ER Decision to Admit Date: 07/08/17 Decision to Admit Time: 09:33 Condition: (2) Stable Forms: Patient Portal Access Time of Disposition: 09:33 Quality - Quality Measures Quality Measures: N/A - Blood Pressure Screening Does Patient Have Any of the Following: No Blood Pressure Classification: Pre-Hypertensive BP Reading Systolic Measurement: 134 Diastolic Measurement: 87 Screening for High Blood Pressure: < Pre-Hypertensive BP, F/U Documented > [ G8950] Pre-Hypertensive Follow-up Interventions: Referral to alternative/primary care provider.
[2017-07-08] MEDS ORDERED: 0.9 % SODIUM CHLORIDE 1000ML 1,000 ML IV SCH (07:45)
[2017-07-08 08:14] LABS: BASO % 0.1 % (0-6); GRAN % 73.5 % (47-80); HEMATOCRIT 45.6 % (42.0-52.0); HEMOGLOBIN 16.1 gm/dl (14.0-18.0); LYMPH % 15.1 % (16-45); MEAN CELL VOLUME 85.6 fl (81-97); MEAN CORPUSCULAR HEMOGLOBIN 30.2 pg (27-33); MEAN CORPUSCULAR HGB CONC 35.3 g/dl (32-36); MEAN PLATELET VOLUME 10.1 fl (7.4-10.4); MONO % 11.3 % (0-9); PLATELET COUNT 240 K/uL (130-400); RED BLOOD COUNT 5.33 M/uL (4.40-5.70); RED CELL DISTRIBUTION WIDTH 13.8 % (11.5-14.5); WHITE BLOOD COUNT W/O DIFF 7.1 K/uL (4.2-12.2)
[2017-07-08 08:42] LABS: ALBUMIN 4.8 g/dL (4.0-5.0)
[2017-07-08 08:43] LABS: ALB/GLOB RATIO 1.7 (1.1-1.8); ALKALINE PHOSPHATASE 68 U/L (40-129); ALT/SGPT 19 U/L (<41); AST/SGOT 22 U/L (10.0-50.0); BLOOD UREA NITROGEN 14 mg/dL (6-20); CREATININE 0.7 mg/dL (0.7-1.2); EST GLOMERULAR FILTRATION RATE > 60 mL/min; GLUCOSE,RANDOM 141 mg/dL (74-109); TOTAL PROTEIN 7.6 g/dL (6.6-8.7)
[2017-07-08] MEDS ORDERED: SOD CHLOR 0.9% WITH KCL 40MEQ 40 MEQ/1,000 ML IV.SOLN IV ONE (08:57)
[2017-07-08] MEDS ORDERED: MAGNESIUM SULFATE 16 MEQ in 0.9 % SODIUM CHLORIDE 100ML 100 ML IV ONE (08:57)
[2017-07-08 09:13] LABS: LIPASE 54 U/L (13-60)
--- NOTE | 2017-07-08 10:45 | History & Physical ---
History of Present Illness - Date of Service Date of Service for History & Physical: 07/08/17 - History of Present Illness History of Present Illness: Mr. Ortega is a 51 y/o male with history of cystic fibrosis and chronic pancreatitis who presents with a 2 days history of nausea and intractable vomiting. He says that he last was able to keep food down on Saturday afternoon but since then, everything that he tries to eat won't stay down. The patient reports severe abdominal pain 9/10 at present which he says is controlled with the long acting morphine and hydromorphone. He also takes Pancrealipase which he has not been able to take due to his persistent vomiting. He denies diarrhea, fever, chills, weight loss or changes in appetite. The patient says that he is compliant with medications and follows up with his PCP on a monthly basis for pain medications. In the ED the patient's labs show hypokalemia and mild elevation in lipase. There are no other abnormalities noted. The patient has been admitted to [facility] previously due to his frequent flare ups and requiring high doses pain medication and IV fluids. Travel Screening - Travel/Exposure Within Last 30 Days Have you traveled within the last 30 days?: No - Travel/Exposure Within Last Year Have you traveled outside the [place] in the last year?: No - Additonal Travel Details Have you been exposed to anyone with a communicable illness?: No - Travel Symptoms Symptom Screening: None Review of Systems Constitutional: Denies: Chills, Fever, Malaise, Night sweats Eyes: Denies: Eye discharge, Eye pain ENT: Denies: Congestion, Ear pain, Epistaxis Respiratory: Denies: Cough, Dyspnea Cardiovascular: Denies: Chest pain, Dyspnea on exertion Endocrine: Denies: Fatigue, Heat or cold intolerance Gastrointestinal: Reports: Abdominal pain, Nausea, Vomiting. Denies: Constipation Genitourinary: Denies: Incontinence, Retention Musculoskeletal: Denies: Arthralgia, Back pain, Gout, Joint swelling Skin: Denies: Bruising, Change in color Neurological: Denies: Abnormal gait, Confusion, Headache, Seizure Psychiatric: Denies: Anxiety Hematological/Lymphatic: Denies: Anemia, Blood Clots Past Medical History - SOCIAL HISTORY Smoking Status: Never smoker Alcohol Use: None Drug Use: None - RESPIRATORY Hx Respiratory Disorders: No - CARDIOVASCULAR Hx Cardio Disorders: Yes Hx Deep Vein Thrombosis: Yes - NEURO Hx Neuro Disorders: No - GI Hx GI Disorders: Yes Hx Abdominal Pain: Yes Hx Nausea/Vomiting: Yes Hx Pancreatitis: Yes Comment:: pancreatitis - Hx Genitourinary Disorders: Yes Hx Kidney Stones: Yes - ENDOCRINE Hx Endocrine Disorders: No Hx Diabetes: No Hx Thyroid Disease: No - MUSCULOSKELETAL Hx Musculoskeletal Disorders: No - PSYCH Hx Psych Problems: Yes Hx Depression: Yes - HEMATOLOGY/ONCOLOGY Hx Hematology/Oncology Disorders: No Family Medical History Any Significant Family History?: No Hx Alcohol Use: Father Hx Anxiety: Mother Hx Cancer: Grandparents Hx Heart Disease: Father Hx HTN: Grandparents H&P Meds/Allergies - Allergies Allergies: Allergies Allergy/AdvReac Type Severity Reaction Status Date / Time fentanyl [From Duragesic] AdvReac Severe HYPERSENSIT Verified 07/08/17 07:36 IVITY - Active Medications Active Medications: Current Medications Sodium Chloride () 1,000 mls @ 0 mls/hr IV .Q0M ZIGGY Last Admin: 07/08/17 08:03 Dose: 1,000 mls/hr Potassium Chloride/Sodium Chloride (Potassium Chl 40meq/) 40 meq in 1,000 mls @ 150 mls/hr IV NOW ONE Stop: 07/08/17 15:36 Last Admin: 07/08/17 09:15 Dose: 150 mls/hr Physical Exam - Vital Signs Vital Signs: Vital Signs - Last 24 Hrs Temp Pulse Pulse Resp BP BP Pulse Ox 07/08/17 10:03 73 18 149/85 97 07/08/17 10:00 84 16 152/84 97 07/08/17 09:00 93 H 16 142/84 97 07/08/17 08:40 78 16 142/80 97 07/08/17 08:30 75 16 142/81 86 L 07/08/17 08:20 75 16 138/80 94 L 07/08/17 08:08 79 16 139/84 93 L 07/08/17 07:31 99.3 F 102 H 20 134/87 97 - General General Appearance: Alert, Oriented x3, Cooperative, Moderate distress Limitations: No limitations - Head Head exam: Atraumatic, Normocephalic, Normal inspection Head exam detail: negative: Abrasion, Contusion, General tenderness, Hematoma, Laceration - Eye Eye exam: Normal appearance. negative: Conjunctival injection, Periorbital swelling, Periorbital tenderness, Scleral icterus - ENT Ear exam: negative: Auricular hematoma, Auricular trauma Nasal Exam: negative: Active bleeding, Discharge, Dried blood, Foreign body Mouth exam: negative: Drooling, Laceration, Tongue elevation - Neck Neck exam: Normal inspection. negative: Meningismus, Tenderness - Respiratory Respiratory exam: Normal lung sounds bilaterally. negative: Rales, Respiratory distress, Rhonchi, Stridor - Cardiovascular Cardiovascular Exam: Regular rate, Normal rhythm, Normal heart sounds Peripheral Pulses: 3+: Radial (R), Radial (L), Dorsalis Pedis (R), Dorsalis Pedis (L) - GI/Abdominal GI/Abdominal exam: Soft, Normal bowel sounds, Tenderness (tenderness over the LLQ. ). negative: Rebound, Rigid - Rectal Rectal exam: Deferred - exam: Deferred - Extremities Extremities exam: Normal inspection. negative: Calf tenderness, Pedal edema, Tenderness - Back Back exam: Denies: CVA tenderness (R), CVA tenderness (L) - Neurological Neurological exam: Alert, Normal gait, Oriented X3 - Psychiatric Psychiatric exam: Normal affect, Normal mood - Skin Skin exam: Normal color. negative: Abrasion Type of lesion: negative: abrasion Results - Labs Result Diagrams: 07/08/17 08:09 07/08/17 08:09 Labs Last 24 Hours: Laboratory Results - last 24 hr 07/08/17 07/08/17 08:09 08:09 WBC 7.1 RBC 5.33 Hgb 16.1 Hct 45.6 MCV 85.6 MCH 30.2 MCHC 35.3 RDW 13.8 Plt Count 240 MPV 10.1 Gran % 73.5 Lymphocytes % 15.1 L Monocytes % 11.3 H Eosinophils % 0.0 Basophils % 0.1 Sodium 143 Potassium 2.4 L* Chloride 91 L Carbon Dioxide 28.0 Anion Gap 24.0 H BUN 14 Creatinine 0.7 Estimated GFR > 60 Random Glucose 141 H Calcium 9.8 Total Bilirubin 1.30 H AST 22 ALT 19 Alkaline Phosphatase 68 Total Protein 7.6 Albumin 4.8 Globulin 2.8 Albumin/Globulin Ratio 1.7 Lipase 54 VTE H&P Assessment - Risk for VTE Risk for VTE: No Risk Level: Very Low Risk Assessment Date: 07/08/17 Risk Assessment Time: 10:38 VTE Orders Placed or Will Be Placed: No VTE Reason for No Prophylaxis: Not Indicated Plan - Detailed Diagnosis and Plan (1) Nausea & vomiting Current Visit: Yes Status: Acute Qualifiers: Vomiting type: unspecified Vomiting Intractability: intractable Qualified Code(s): R11.2 - Nausea with vomiting, unspecified Base Code: R11.2 - NAUSEA WITH VOMITING, UNSPECIFIED Comment: 07/09/17: - pt w/ intractable n/v - cont IVF Nacl 0.9% @ 125mL/hr, Reglan 10mg Q6H PRN, Zofran 4mg Q4H PRN - advance diet as tolerated. (2) Acute on chronic pancreatitis Current Visit: No Status: Acute Base Code: K85.90 - ACUTE PANCREATITIS WITHOUT NECROSIS OR INFECTION, UNSP; K86.1 - OTHER CHRONIC PANCREATITIS Comment: 07/09/17: - pt has a protracted history of recurring pancreatitis as a result of CF. No hx of ETOH Hx of cholecystectomy. - lipase 54, cont w/ IVF @ 125mL/hr, Morphine 10mg IV Q6H, Dilaudid 2mg IV Q4H, Reglan, 10mg, Zofran 4mg IV PRN. - pancrealipase to be resumed once he can tolerate PO. - advance diet as tolerated and change medication to PO dosing. (3) Hypokalemia, gastrointestinal losses Current Visit: No Status: Acute Base Code: E87.6 - HYPOKALEMIA Comment: 07/09/17: - K+ 2.4, repleted 40 meq IV in ED, add an additional 40meq IVP. - recheck K+ 2 hrs after repletion and on morning labs. (4) Mixed acid base balance disorder Current Visit: Yes Status: Acute Base Code: E87.4 - MIXED DISORDER OF ACID- BASE BALANCE Comment: 07/09/17: - pt has mild hypochloremia and low K+ from persistent vomiting. - anion gap @ 24. - replete electrolytes and continuous fluids. Repeat lytes in the morning. (5) Chronic narcotic use Current Visit: No Status: Acute Base Code: F11.90 - OPIOID USE, UNSPECIFIED , UNCOMPLICATED Comment: 07/09/17: - Moprhine 10mg Q6H, Dilaudid 2mg IVP Q4H PRN - patient on high doses of extended release Moprhine 260mg BID and Dilaudid 4mg QID PRN - change to oral home doses as tolerated. Pharmacy does not carry PO moprhine in these doses so patient will have to use home medications. (6) Cystic fibrosis Current Visit: No Status: Chronic Base Code: E84.9 - CYSTIC FIBROSIS, UNSPECIFIED (7) Full code status Current Visit: No Status: Acute Base Code: Z78.9 - OTHER SPECIFIED HEALTH STATUS Comment: - FULL CODE
[2017-07-08] MEDS ORDERED: MORPHINE SULFATE 4MG/ML PREFILLED SYRINGE IVP SCH (11:35)
[2017-07-08] MEDS ORDERED: 0.9 % SODIUM CHLORIDE 1,000 ML BAG IV SCH (11:35)
[2017-07-08] MEDS: HYDROMORPHONE HCL 2 MG/ML VIAL IVP PRN ×4 (12:02→22:20)
[2017-07-08] MEDS: METOCLOPRAMIDE HCL 10 MG/2 ML VIAL IVP PRN ×2 (12:10→20:12)
[2017-07-08] MEDS: ONDANSETRON HCL IV 4 MG/2 ML VIAL IVP PRN ×3 (13:55→23:16)
[2017-07-08] MEDS: 0.9 % SODIUM CHLORIDE 1000ML 1,000 ML IV PRN (16:22)
[2017-07-08] MEDS: HYDROMORPHONE HCL 2 MG/ML VIAL IVP SCH (18:03)
[2017-07-09] MEDS: 0.9 % SODIUM CHLORIDE 1000ML 1,000 ML IV PRN (00:34)
[2017-07-09] MEDS: METOCLOPRAMIDE HCL 10 MG/2 ML VIAL IVP PRN ×3 (02:10→20:03)
[2017-07-09] MEDS: HYDROMORPHONE HCL 2 MG/ML VIAL IVP PRN ×5 (02:10→20:04)
[2017-07-09] MEDS: ONDANSETRON HCL IV 4 MG/2 ML VIAL IVP PRN ×4 (04:13→16:06)
[2017-07-09] MEDS: HYDROMORPHONE HCL 2 MG/ML VIAL IVP SCH ×4 (06:00→18:04)
[2017-07-09 06:49] LABS: GRAN % 66.4 % (47-80); HEMATOCRIT 35.4 % (42.0-52.0); HEMOGLOBIN 11.8 gm/dl (14.0-18.0); LYMPH % 23.9 % (16-45); MEAN CELL VOLUME 89.2 fl (81-97); MEAN CORPUSCULAR HEMOGLOBIN 29.7 pg (27-33); MEAN CORPUSCULAR HGB CONC 33.3 g/dl (32-36); MEAN PLATELET VOLUME 10.4 fl (7.4-10.4); MONO % 9.7 % (0-9); PLATELET COUNT 169 K/uL (130-400); RED BLOOD COUNT 3.97 M/uL (4.40-5.70); RED CELL DISTRIBUTION WIDTH 13.8 % (11.5-14.5); WHITE BLOOD COUNT W/O DIFF 5.2 K/uL (4.2-12.2)
[2017-07-09 07:08] LABS: BLOOD UREA NITROGEN 17 mg/dL (6-20); CREATININE 0.6 mg/dL (0.7-1.2); EST GLOMERULAR FILTRATION RATE > 60 mL/min; GLUCOSE,RANDOM 104 mg/dL (74-109)
--- NOTE | 2017-07-09 09:34 | Physician Progress Note ---
Subjective - Date Date of Physician Progress Note: 07/09/17 - Subjective Location: Abdomen Severity scale (1-10): 10 Quality: Aching Consistency: Constant Improves with: Medication Objective - Vital Signs Vital Signs: Vital Signs - Last 24 Hrs Temp Pulse Pulse Resp BP BP BP 07/09/17 08:52 97.4 F L 62 18 168/84 07/09/17 05:00 98.1 F 71 18 155/86 07/09/17 00:12 98.1 F 64 18 153/87 07/08/17 21:00 56 L 18 07/08/17 20:00 98.6 F 56 L 18 153/77 07/08/17 17:35 97.4 F L 79 16 155/92 07/08/17 15:25 99.7 F H 157/80 07/08/17 13:35 99.7 F H 78 18 157/80 07/08/17 11:30 16 07/08/17 10:20 98.1 F 79 16 143/84 07/08/17 10:03 73 18 149/85 07/08/17 10:00 84 16 152/84 Pulse Ox 07/09/17 08:52 100 07/09/17 05:00 95 07/09/17 00:12 96 07/08/17 21:00 07/08/17 20:00 97 07/08/17 17:35 98 07/08/17 15:25 07/08/17 13:35 100 07/08/17 11:30 07/08/17 10:20 96 07/08/17 10:03 97 07/08/17 10:00 97 - General General Appearance: Alert, Oriented x3, Cooperative, Mild distress Limitations: No limitations - Head Head exam: Atraumatic, Normocephalic, Normal inspection Head exam detail: negative: Abrasion, Contusion, General tenderness, Hematoma, Laceration - Eye Eye exam: Normal appearance. negative: Conjunctival injection, Periorbital swelling, Periorbital tenderness, Scleral icterus - ENT Ear exam: negative: Auricular hematoma, Auricular trauma Nasal Exam: negative: Active bleeding, Discharge, Dried blood, Foreign body Mouth exam: negative: Drooling, Laceration, Tongue elevation - Neck Neck exam: Normal inspection. negative: Meningismus, Tenderness - Respiratory Respiratory exam: Normal lung sounds bilaterally. negative: Rales, Respiratory distress, Rhonchi, Stridor - Cardiovascular Cardiovascular Exam: Regular rate, Normal rhythm, Normal heart sounds Peripheral Pulses: 3+: Radial (R), Radial (L), Dorsalis Pedis (R), Dorsalis Pedis (L) - GI/Abdominal GI/Abdominal exam: Soft, Normal bowel sounds, Tenderness (tenderness over the LLQ. ). negative: Rebound, Rigid - Rectal Rectal exam: Deferred - exam: Deferred - Extremities Extremities exam: Normal inspection. negative: Calf tenderness, Pedal edema, Tenderness - Back Back exam: Denies: CVA tenderness (R), CVA tenderness (L) - Neurological Neurological exam: Alert, Normal gait, Oriented X3 - Psychiatric Psychiatric exam: Normal affect, Normal mood - Skin Skin exam: Normal color. negative: Abrasion Type of lesion: negative: abrasion Assessment and Plan - Assessment and Plan (1) Nausea & vomiting Current Visit: Yes Status: Acute Qualifiers: Vomiting type: unspecified Vomiting Intractability: intractable Qualified Code(s): R11.2 - Nausea with vomiting, unspecified Base Code: R11.2 - NAUSEA WITH VOMITING, UNSPECIFIED Comment: 07/09/17: - pt w/ intractable n/v - cont IVF Nacl 0.9% @ 125mL/hr, Reglan 10mg Q6H PRN, Zofran 4mg Q4H PRN - advance diet as tolerated. 07/10/17 -pt has not vomited this AM, has dry heaves but demanding ice chips and tolerating, cont Reglan 10mg Q6 and Zofran 4mg Q4 PRN -IVF changed to 40 mEq K and NS 1000ml @ 125 r/t continued hypokalemia -advancing diet to CLD this AM (2) Acute on chronic pancreatitis Current Visit: No Status: Acute Base Code: K85.90 - ACUTE PANCREATITIS WITHOUT NECROSIS OR INFECTION, UNSP; K86.1 - OTHER CHRONIC PANCREATITIS Comment: 07/09/17: - pt has a protracted history of recurring pancreatitis as a result of CF. No hx of ETOH Hx of cholecystectomy. - lipase 54, cont w/ IVF @ 125mL/hr, Morphine 10mg IV Q6H, Dilaudid 2mg IV Q4H, Reglan, 10mg, Zofran 4mg IV PRN. - pancrealipase to be resumed once he can tolerate PO. - advance diet as tolerated and change medication to PO dosing. 07/09/17 -recurring issues with pancreatitis r/t CF (no hx of ETOH) -IVF changed to 40 mEq NS 1000ml @ 125, Dilaudid 2mg q6hr and Dilaudid 2mg Q4 PRN, labs have improved, no evidence of active pancreatitis -pt updated that POC is to return to PO medications for baseline mgt -pt reports nausea is a direct relation to abd pain, that is abd pain is controlled nausea will be controlled -attempting to advance diet to CLR and PO home pain dosing (3) Mixed acid base balance disorder Current Visit: Yes Status: Acute Base Code: E87.4 - MIXED DISORDER OF ACID- BASE BALANCE Comment: 07/09/17: - pt has mild hypochloremia and low K+ from persistent vomiting. - anion gap @ 24. - replete electrolytes and continuous fluids. Repeat lytes in the morning. 07/10/17 -continues with hypokalemia and hypochloremia has resolved -changed IVF to 40 mEq K NS 1000mL @125 and pt placed on monitor r/t continued low K -anion gap decreased to 15 with AM labs -repeat labs AM (4) Chronic narcotic use Current Visit: No Status: Acute Base Code: F11.90 - OPIOID USE, UNSPECIFIED , UNCOMPLICATED Comment: 07/09/17: - Moprhine 10mg Q6H, Dilaudid 2mg IVP Q4H PRN - patient on high doses of extended release Moprhine 260mg BID and Dilaudid 4mg QID PRN - change to oral home doses as tolerated. Pharmacy does not carry PO moprhine in these doses so patient will have to use home medications. 07/09/17 -r/t morphine shortage, conversions were made to adjust dosing of dilaudid 2mg scheduled and dilaudid 2mg IVP q4 PRN -pt is requesting IVP medications q 2 hours from nursing and making statements that pain was better managed previous visit. Pt updated on morphine shortage and that the same regimen is not possible. Pt reports that the dilaudid wears off after 45 minutes. Dilaudid calculations were completed by Dr Ortega previously during this current visit. -pt educated that the best POC is to return to his home medication regimen. Pt was not able to bring in meds this visit and states no one is able to bring in his mediation. -pt will attempt to advance diet and return to home PO dosing (5) Full code status Current Visit: No Status: Acute Base Code: Z78.9 - OTHER SPECIFIED HEALTH STATUS Comment: 07/09/17 - FULL CODE (6) Hypokalemia, gastrointestinal losses Current Visit: No Status: Acute Base Code: E87.6 - HYPOKALEMIA Comment: 07/09/17: - K+ 2.4, repleted 40 meq IV in ED, add an additional 40meq IVP. - recheck K+ 2 hrs after repletion and on morning labs. (7) Cystic fibrosis Current Visit: No Status: Chronic Base Code: E84.9 - CYSTIC FIBROSIS, UNSPECIFIED Comment: 07/09/17 Results - Labs Result Diagrams: 07/09/17 06:13 07/09/17 06:13 Labs Last 24 Hours: Laboratory Results - last 24 hr 07/09/17 07/09/17 06:13 06:13 WBC 5.2 RBC 3.97 L Hgb 11.8 L Hct 35.4 L MCV 89.2 MCH 29.7 MCHC 33.3 RDW 13.8 Plt Count 169 MPV 10.4 Gran % 66.4 Lymphocytes % 23.9 Monocytes % 9.7 H Eosinophils % 0.0 Basophils % 0.0 Sodium 146 H Potassium 2.9 L* Chloride 105 Carbon Dioxide 26.0 Anion Gap 15.0 BUN 17 Creatinine 0.6 L Estimated GFR > 60 Random Glucose 104 Calcium 7.8 L DVT/PE Assessment - Risk for VTE Risk for VTE: No Risk Level: Very Low Risk Assessment Date: 07/08/17 Risk Assessment Time: 10:38 VTE Orders Placed or Will Be Placed: No VTE Reason for No Prophylaxis: Not Indicated - Active Medicaitons Current Medications: Current Medications Hydromorphone HCl (Dilaudid) 2 mg IVP Q4H PRN PRN Reason: Abdominal Pain Last Admin: 07/09/17 08:03 Dose: 2 mg Hydromorphone HCl (Dilaudid) 2 mg IVP Q6HR ZIGGY Last Admin: 07/09/17 06:00 Dose: 2 mg Potassium Chloride/Sodium Chloride (Potassium Chl 40meq/) 40 meq in 1,000 mls @ 125 mls/hr IV Q8H ZIGGY Metoclopramide HCl (Reglan) 10 mg IVP Q6H PRN PRN Reason: NAUSEA/VOMITING Last Admin: 07/09/17 02:10 Dose: 10 mg Ondansetron HCl (Zofran) 4 mg IVP Q4H PRN PRN Reason: NAUSEA Last Admin: 07/09/17 08:03 Dose: 4 mg AMI Plan - Labs Result Diagrams: 07/09/17 06:13 07/09/17 06:13
[2017-07-09] MEDS: SOD CHLOR 0.9% WITH KCL 40MEQ 40 MEQ/1,000 ML IV.SOLN IV SCH ×2 (09:51→18:05)
[2017-07-10] MEDS: ONDANSETRON HCL IV 4 MG/2 ML VIAL IVP PRN ×4 (00:02→18:32)
[2017-07-10] MEDS: HYDROMORPHONE HCL 2 MG/ML VIAL IVP SCH ×3 (00:02→11:59)
[2017-07-10] MEDS: SOD CHLOR 0.9% WITH KCL 40MEQ 40 MEQ/1,000 ML IV.SOLN IV SCH ×3 (01:23→19:33)
[2017-07-10] MEDS: METOCLOPRAMIDE HCL 10 MG/2 ML VIAL IVP PRN ×3 (02:23→13:59)
[2017-07-10] MEDS: HYDROMORPHONE HCL 2 MG/ML VIAL IVP PRN ×3 (02:24→14:06)
[2017-07-10 07:15] LABS: ALB/GLOB RATIO 1.9 (1.1-1.8); ALBUMIN 3.9 g/dL (4.0-5.0); ALKALINE PHOSPHATASE 54 U/L (40-129); ALT/SGPT 15 U/L (<41); AST/SGOT 19 U/L (10.0-50.0); BLOOD UREA NITROGEN 11 mg/dL (6-20); CREATININE 0.5 mg/dL (0.7-1.2); EST GLOMERULAR FILTRATION RATE > 60 mL/min; GLUCOSE,RANDOM 92 mg/dL (74-109)
--- NOTE | 2017-07-10 13:48 | Discharge Summary ---
Providers Discharge Summary Date: 07/10/17 Date of admission: 07/09/17 09:56 Expected Date of Discharge: 07/10/17 Attending physician: BRAYAN ORTEGA Primary care physician: BRAYAN ORTEGA Physical Exam - Vital Signs Vital Signs: Vital Signs - Last 24 Hrs Temp Pulse Resp BP Pulse Ox 07/10/17 07:53 98.1 F 68 18 155/80 98 07/10/17 05:00 98.0 F 67 18 158/86 95 07/10/17 00:18 60 18 158/86 96 07/09/17 21:00 98.1 F 57 L 18 158/93 96 07/09/17 20:20 64 18 07/09/17 17:00 99.3 F 64 18 155/89 97 - General General Appearance: Alert, Oriented x3, Cooperative, Mild distress Limitations: No limitations - Head Head exam: Atraumatic, Normocephalic, Normal inspection Head exam detail: negative: Abrasion, Contusion, General tenderness, Hematoma, Laceration - Eye Eye exam: Normal appearance. negative: Conjunctival injection, Periorbital swelling, Periorbital tenderness, Scleral icterus - ENT Ear exam: negative: Auricular hematoma, Auricular trauma Nasal Exam: negative: Active bleeding, Discharge, Dried blood, Foreign body Mouth exam: negative: Drooling, Laceration, Tongue elevation - Neck Neck exam: Normal inspection. negative: Meningismus, Tenderness - Respiratory Respiratory exam: Normal lung sounds bilaterally. negative: Rales, Respiratory distress, Rhonchi, Stridor - Cardiovascular Cardiovascular Exam: Regular rate, Normal rhythm, Normal heart sounds Peripheral Pulses: 3+: Radial (R), Radial (L), Dorsalis Pedis (R), Dorsalis Pedis (L) - GI/Abdominal GI/Abdominal exam: Soft, Normal bowel sounds, Tenderness (tenderness over the LLQ. ). negative: Rebound, Rigid - Rectal Rectal exam: Deferred - exam: Deferred - Extremities Extremities exam: Normal inspection. negative: Calf tenderness, Pedal edema, Tenderness - Back Back exam: Denies: CVA tenderness (R), CVA tenderness (L) - Neurological Neurological exam: Alert, Normal gait, Oriented X3 - Psychiatric Psychiatric exam: Normal affect, Normal mood - Skin Skin exam: Normal color. negative: Abrasion Type of lesion: negative: abrasion Hospitalization - Hospitalization Admission Diagnosis: Pancreatitis. Intractable nausea/vomiting. Hypokalemia - Problem List/Discharge Diagnosis (1) Nausea & vomiting Current Visit: Yes Status: Acute Discharge Diagnosis: Vomiting type: unspecified Vomiting Intractability: intractable Qualified Code(s): R11.2 - Nausea with vomiting, unspecified Base Code: R11.2 - NAUSEA WITH VOMITING, UNSPECIFIED Comment: 07/08/17: - pt w/ intractable n/v - cont IVF Nacl 0.9% @ 125mL/hr, Reglan 10mg Q6H PRN, Zofran 4mg Q4H PRN - advance diet as tolerated. 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 No hx of ETOH Hx of cholecystectomy. - lipase 54, cont w/ IVF @ 125mL/hr, Morphine 10mg IV Q6H, Dilaudid 2mg IV Q4H, Reglan, 10mg, Zofran 4mg IV PRN. - pancrealipase to be resumed once he can tolerate PO. - advance diet as tolerated and change medication to PO dosing. 07/09/17 -recurring issues with pancreatitis r/t CF (no hx of ETOH) -IVF changed to 40 mEq NS 1000ml @ 125, Dilaudid 2mg q6hr and Dilaudid 2mg Q4 PRN, labs have improved, no evidence of active pancreatitis -pt updated that POC is to return to PO medications for baseline mgt -pt reports nausea is a direct relation to abd pain, that is abd pain is controlled nausea will be controlled -attempting to advance diet to CLR and PO home pain dosing 07/10/17 -labs have resolved, no indication of pancreatitis -no emesis >24hrs -tolerating CLD -repeat BMP to check for resolved hypokalemia and this dispo to home, to use home pain meds (3) Mixed acid base balance disorder Current Visit: Yes Status: Acute Base Code: E87.4 - MIXED DISORDER OF ACID- BASE BALANCE Comment: 07/08/17: - pt has mild hypochloremia and low K+ from persistent vomiting. - anion gap @ 24. - replete electrolytes and continuous fluids. Repeat lytes in the morning. 07/09/17 -continues with hypokalemia and hypochloremia has resolved -changed IVF to 40 mEq K NS 1000mL @125 and pt placed on monitor r/t continued low K -anion gap decreased to 15 with AM labs -repeat labs AM 07/10/17 -labs are resolving to WNL, repeat BMP to check for normalized potassium and then dispo -no emeisis -no lab indicaiton of acid base balance disorder remains (4) Chronic narcotic use Current Visit: No Status: Acute Base Code: F11.90 - OPIOID USE, UNSPECIFIED , UNCOMPLICATED Comment: 07/08/17: - Moprhine 10mg Q6H, Dilaudid 2mg IVP Q4H PRN - patient on high doses of extended release Moprhine 260mg BID and Dilaudid 4mg QID PRN - change to oral home doses as tolerated. Pharmacy does not carry PO moprhine in these doses so patient will have to use home medications. 07/09/17 -r/t morphine shortage, conversions were made to adjust dosing of dilaudid 2mg scheduled and dilaudid 2mg IVP q4 PRN -pt is requesting IVP medications q 2 hours from nursing and making statements that pain was better managed previous visit. Pt updated on morphine shortage and that the same regimen is not possible. Pt reports that the dilaudid wears off after 45 minutes. Dilaudid calculations were completed by Dr Ortega previously during this current visit. -pt educated that the best POC is to return to his home medication regimen. Pt was not able to bring in meds this visit and states no one is able to bring in his mediation. -pt will attempt to advance diet and return to home PO dosing 07/10/17 -pt tolerating CLD -getting IVP dilaudid 2mg q6 danae, q4hr PRN. -pt has reported he has his regular pain medication supply at home along with this month's new RX -[facility] indicates last fill 06/14/17 fulfilling 230mg morphine ER (30 days) and dilaudid 4mg PO QID for PRN (25 days) (5) Full code status Current Visit: No Status: Acute Base Code: Z78.9 - OTHER SPECIFIED HEALTH STATUS Comment: 07/09/17 - FULL CODE (6) Hypokalemia, gastrointestinal losses Current Visit: No Status: Acute Base Code: E87.6 - HYPOKALEMIA Comment: 07/08/17: - K+ 2.4, repleted 40 meq IV in ED, add an additional 40meq IVP. - recheck K+ 2 hrs after repletion and on morning labs. 07/09/17 -K+ 2.9, 40mEq in 1000ml NS @ 125 continuous -pt placed on cont toll patrolman 07/10/17 -K+ 3.3 AM labs, continue IVF with K -repeat BMP 1300 -pt is chronic low K, takes PO supps at home -if K normalized, dispo today to follow up PCP (7) Cystic fibrosis Current Visit: No Status: Chronic Base Code: E84.9 - CYSTIC FIBROSIS, UNSPECIFIED Comment: 07/09/17 - Hospitalization Course Abnormal Labs: Abnormal Lab Results 07/08/17 07/08/17 07/09/17 Range/Units 08:09 08:09 06:13 RBC 3.97 L (4.40-5.70) M/uL Hgb 11.8 L (14.0-18.0) gm/dl Hct 35.4 L (42.0-52.0) % Lymphocytes % 15.1 L (16-45) % Monocytes % 11.3 H 9.7 H (0-9) % Sodium (136-145) mmol/L Potassium 2.4 L* (3.4-4.5) mmol/L Chloride 91 L (98-107) mmol/L Anion Gap 24.0 H (7-16) Creatinine (0.7-1.2) mg/dL Random Glucose 141 H (74-109) mg/dL Calcium (8.6-10.0) mg/dL Total Bilirubin 1.30 H (0.2-1.0) mg/dL Total Protein (6.6-8.7) g/dL Albumin (4.0-5.0) g/dL Albumin/Globulin Ratio (1.1-1.8) 07/09/17 07/10/17 Range/Units 06:13 06:12 RBC (4.40-5.70) M/uL Hgb (14.0-18.0) gm/dl Hct (42.0-52.0) % Lymphocytes % (16-45) % Monocytes % (0-9) % Sodium 146 H (136-145) mmol/L Potassium 2.9 L* 3.3 L (3.4-4.5) mmol/L Chloride (98-107) mmol/L Anion Gap 19.0 H (7-16) Creatinine 0.6 L 0.5 L (0.7-1.2) mg/dL Random Glucose (74-109) mg/dL Calcium 7.8 L 8.2 L (8.6-10.0) mg/dL Total Bilirubin 1.60 H (0.2-1.0) mg/dL Total Protein 6.0 L (6.6-8.7) g/dL Albumin 3.9 L (4.0-5.0) g/dL Albumin/Globulin Ratio 1.9 H (1.1-1.8) Condition at Discharge: (2) Stable Discharge Medications - Discharge Medications Home Medications: Ambulatory Orders Amiloride HCl 5 mg PO BID 07/19/13 [Last Taken 07/06/17] Aspirin 81 mg PO DAILY 07/19/13 [Last Taken 07/06/17] Atenolol 25 mg PO DAILY 07/19/13 [Last Taken 07/06/17] Fenofibrate Nanocrystallized [Tricor] 145 mg PO DAILY 07/19/13 [Last Taken 07/06] Hydromorphone HCl [Dilaudid] 4 mg PO QID PRN 07/19/13 [Last Taken 07/06/17] Lipase/Protease/Amylase [Pancrelipase 5,000 Dr Capsule] 3 tab PO WMEALS [Last Taken 07/06/17] Metoclopramide HCl [Reglan] 20 mg PO QHS 07/19/13 [Last Taken 07/06/17] Morphine Sulfate [Ms Contin] 200 mg PO BID 07/19/13 [Last Taken 07/06/17] Omeprazole 20 mg PO 0700,2200 07/19/13 [Last Taken 07/06/17] Ondansetron HCl [Zofran] 8 mg PO BID 07/19/13 [Last Taken 07/06/17] Potassium Citrate [Potassium Citrate ER] 20 meq PO QAM 07/19/13 [Last Taken 07/19] Prochlorperazine Maleate 5 mg PO BID 07/19/13 [Last Taken 07/06/17] Morphine Sulfate [Ms Contin] 60 mg PO BID 07/21/13 [Last Taken 07/06/17] Citalopram Hydrobromide [Celexa] 10 mg PO DAILY 02/12/17 [Last Taken 07/06/17] Potassium Citrate [Potassium Citrate ER] 40 meq PO QHS 02/12/17 [Last Taken 07/19] Discharge Plan - Discharge Instructions Activity at Discharge: Increase Activity as Tolerated Diet at Discharge: Advance to Usual Diet Additional Instructions: Return to your regular medication schedule in accordance to the dose you have received inpt. Continue with your anti-nausea medications as directed You have declined to have the [employer] make a follow up appt with your PCP (Dr Schrader or soon to be " Saturday") at [facility]. You have stated you would like to be home with your schedule to make this appointment on your own. You can continue clear liquid diet and slowly advance your diet. You have states you do not need any instructions on this as this pancreatitis/abd pain issue is chronic. Quality Measures - Quality Measures Quality Measures: Documentation of Current Medications in Medical Record, Screening for High Blood Pressure and F/U Documented - Current Medications Quality Measure: Measure #130: Documentation of Current Medications Documentation of Current Medications: <Current Medications Documented/Reviewed> [G8427] - Blood Pressure Screening Quality Measure: Screening for High Blood Pressure and Follow-Up Documented Does Patient Have Any of the Following: No Blood Pressure Classification: Pre-Hypertensive BP Reading Systolic Measurement: 157 Diastolic Measurement: 80 Screening for High Blood Pressure: < Pre-Hypertensive BP, F/U Documented > [ [id number]] Pre-Hypertensive Follow-up Interventions: Referral to alternative/primary care provider. - Elder Abuse Suspicion Index EASI Reference Information: Page MARSHALL, Rox C, Emperatriz Amezquita, Jim Potter.Development and validation of a tool to assist physicians identification of elder abuse: The Elder Abuse Suspicion Index (EASI ). Journal of Elder Abuse and Neglect, 2008; 20 (3): 276-300.
[2017-07-10 14:20] LABS: BLOOD UREA NITROGEN 10 mg/dL (6-20); CREATININE 0.5 mg/dL (0.7-1.2); EST GLOMERULAR FILTRATION RATE > 60 mL/min; GLUCOSE,RANDOM 104 mg/dL (74-109)
[2017-07-10] MEDS ORDERED: MORPHINE SULFATE 30MG TABLET.ER PO SCH (15:30)
[2017-07-10] MEDS ORDERED: HEPARIN SODIUM FLUSH 100 UNITS/ML SYR 5ML IV ONE (18:29)
[2017-07-10] MEDS ORDERED: 0.9 % SODIUM CHLORIDE 10ML SYR IVP ONE (18:29)
== END 2017-07-10 19:45 | disposition home or self-care (01) | DRG 439 ==
LOC: ER 07:25 → MEDSURG 10:11 → OBSVTOIN 07-09 09:56
PROVIDERS: ADMIT Internal Medicine; ATTEND Internal Medicine
DX: K85.90 Acute pancreatitis without necrosis or infection, unspecified (principal); E84.9 Cystic fibrosis, unspecified; E87.4 Mixed disorder of acid-base balance; K86.1 Other chronic pancreatitis; E87.6 Hypokalemia; F11.90 Opioid use, unspecified, uncomplicated; Z90.49 Acquired absence of other specified parts of digestive tract; Z86.718 Personal history of other venous thrombosis and embolism; Z87.442 Personal history of urinary calculi
CPT/HCPCS: 80048; 80053; 83690; 85025; 96361; 96374; 96375; 96376; 99223; 99233; 99239; 99285; J2405; J2765; J7030

== ENCOUNTER 2018-07-28 21:39 | Observation (INO) | payer MEDICARE ==
[2018-07-28] MEDS ORDERED: ONDANSETRON HCL IV 4 MG/2 ML VIAL IVP ONE (21:51)
[2018-07-28] MEDS ORDERED: HYDROMORPHONE HCL 2 MG/ML VIAL IVP ONE ×2 (21:51→23:05)
--- NOTE | 2018-07-28 21:57 | Emergency Department Record ---
History of Present Illness - General Chief complaint: Nausea, Vomiting, Diarrhea Stated complaint: VOMITING, NAUSEA Time Seen by Provider: 07/28/18 21:41 Source: Patient Mode of Arrival: Ambulatory Limitations: No limitations - History of Present Illness Initial comments: 52 yo male presents to ED for evaluation of "pancreatitis". Patient reports numerous episodes previously, reports he has exacerbations occur approximately every 6 weeks. Patient reports that he is able to treat most of his episodes at home, however his symptoms are worse this evening. Patient denies fevers, chills, or recent illness but does report epigastric abdominal pain, nausea, and vomiting. Patient reports a history of CF as well. MD complaint: Abdominal pain, Nausea, Vomiting Onset/Timin -: Days(s) Description of Vomiting: Bilious, Watery Associated Abdominal Pain: Yes Location: Epigastric Radiation: Bilateral flank Severity: Severe Severity scale (1-10): 10 Quality: Sharp, Stabbing Consistency: Constant Improves with: None Worsens with: Vomiting Associated Symptoms: Cough, Fever/chills, Loss of appetite, Nausea/vomiting - Related Data Home Medications Medication Instructions Recorded Confirmed Last Taken Furosemide [Lasix] 20 mg PO DAILY 07/29/18 07/29/18 Unknown Hydromorphone HCl [Dilaudid] 2 mg PO BID 07/29/18 07/29/18 Unknown Allergies Allergy/AdvReac Type Severity Reaction Status Date / Time fentanyl [From Duragesic] AdvReac Severe HYPERSENSIT Unverified 06/05/18 10:43 IVITY Travel Screening - Travel/Exposure Within Last 30 Days Have you traveled within the last 30 days?: No - Travel Symptoms Symptom Screening: Fever (Subjective), Vomiting Review of Systems Constitutional: Denies: Chills, Fever, Malaise, Night sweats Eyes: Denies: Eye discharge, Eye pain ENT: Denies: Congestion, Ear pain, Epistaxis Respiratory: Denies: Cough, Dyspnea Cardiovascular: Denies: Chest pain, Dyspnea on exertion Endocrine: Denies: Fatigue, Heat or cold intolerance Gastrointestinal: Reports: Abdominal pain, Nausea, Vomiting Genitourinary: Denies: Testicular pain, Testicular mass Musculoskeletal: Denies: Arthralgia, Back pain Skin: Denies: Bruising, Change in color Neurological: Denies: Abnormal gait, Confusion, Headache, Seizure Psychiatric: Denies: Anxiety Hematological/Lymphatic: Denies: Anemia, Blood Clots Past Medical History - SOCIAL HISTORY Smoking Status: Never smoker - RESPIRATORY Hx Respiratory Disorders: No - CARDIOVASCULAR Hx Cardio Disorders: Yes Hx Deep Vein Thrombosis: Yes - NEURO Hx Neuro Disorders: No - GI Hx GI Disorders: Yes Hx Abdominal Pain: Yes Hx Nausea/Vomiting: Yes Hx Pancreatitis: Yes Comment:: pancreatitis frequently. - Hx Genitourinary Disorders: Yes Hx Kidney Stones: Yes - ENDOCRINE Hx Endocrine Disorders: No Hx Diabetes: No Hx Thyroid Disease: No - MUSCULOSKELETAL Hx Musculoskeletal Disorders: No - PSYCH Hx Psych Problems: Yes Hx Depression: Yes - HEMATOLOGY/ONCOLOGY Hx Hematology/Oncology Disorders: No Family Medical History Any Significant Family History?: Yes Family Hx Comment (NOT TO BE USED IN PLACE OF ITEMS BELOW): DAUGHTER-CF carrier Hx Alcohol Use: Father Hx Anxiety: Mother Hx Cancer: Grandparents Hx Heart Disease: Father Hx HTN: Grandparents Physical Exam - General General Appearance: Alert, Oriented x3, Cooperative, Moderate distress Limitations: No limitations - Head Head exam: Atraumatic, Normocephalic, Normal inspection Head exam detail: negative: Abrasion, Contusion, Padgett's sign, General tenderness, Hematoma, Laceration - Eye Eye exam: Normal appearance. negative: Conjunctival injection, Periorbital swelling, Periorbital tenderness, Scleral icterus - ENT Ear exam: negative: Auricular hematoma, Auricular trauma Nasal Exam: negative: Active bleeding, Discharge, Dried blood, Foreign body Mouth exam: negative: Drooling, Laceration, Muffled voice, Tongue elevation Throat exam: negative: Tonsillar erythema, Tonsillomegaly, R peritonsillar mass, L peritonsillar mass - Neck Neck exam: Normal inspection. negative: Meningismus, Tenderness - Respiratory Respiratory exam: Normal lung sounds bilaterally. negative: Rales, Respiratory distress, Rhonchi, Stridor - Cardiovascular Cardiovascular Exam: Regular rate, Normal rhythm, Normal heart sounds - GI/Abdominal GI/Abdominal exam: Soft, Tenderness. negative: Rebound, Rigid - Rectal Rectal exam: Deferred - exam: Deferred - Extremities Extremities exam: Normal inspection. negative: Pedal edema, Tenderness - Back Back exam: Denies: CVA tenderness (R), CVA tenderness (L) - Neurological Neurological exam: Alert, Normal gait, Oriented X3 - Psychiatric Psychiatric exam: Normal affect, Normal mood - Skin Skin exam: Normal color. negative: Abrasion Type of lesion: negative: abrasion Course Vital Signs 07/28/18 21:44 Temperature 100.5 F H Pulse Rate [ 74 Bilateral Radial] Respiratory 18 Rate Blood Pressure 143/79 [Left Arm] Pulse Ox 98 - Reevaluation(s) Reevaluation #1: 07/28/18 22:44 Laboratory studies were reviewed and appear grossly unremarkable for an acute process. Patient resting more comfortably at this time, as Lipase appears normal, will obtain CT imaging to exclude other etiologies for his epigastric pain symptoms. Reevaluation #2: 07/29/18 01:16 CT Abdomen and Pelvis: No acute findings Mild pancreatic fatty replacement and atrophy without shazia-pancreatic fat stran ding or fluid Patient was updated on all results, reports that his symptoms are improved. Will admit for further evaluation and treatment for pancreatitis. Reevaluation #3: 07/29/18 06:50 Case was discussed with Diane Graham NP, will accept admission at this time. Medical Decision Making - Lab Data Result diagrams: 07/28/18 21:00 07/28/18 21:00 Disposition Disposition: Admit Clinical Impression: Cystic fibrosis Pancreatitis Qualifiers: Chronicity: acute Pancreatitis type: unspecified pancreatitis type Acute pancreatitis complication: unspecified Qualified Code(s): K85.90 - Acute pancreatitis without necrosis or infection, unspecified Nausea & vomiting Qualifiers: Vomiting type: unspecified Vomiting Intractability: non-intractable Qualified Code(s): R11.2 - Nausea with vomiting, unspecified Disposition: Still a Patient at [facility] Decision to Admit: Admit from ER Decision to Admit Date: 07/29/18 Decision to Admit Time: :18 Condition: (2) Stable Time of Disposition: :18 Quality - Quality Measures Quality Measures: N/A - Blood Pressure Screening Does Patient Have Any of the Following: Active Dx of HTN Blood Pressure Classification: Pre-Hypertensive BP Reading Systolic Measurement: 128 Diastolic Measurement: 72 Screening for High Blood Pressure: Patient Exclusion, Hx of HTN [G9744]
[2018-07-28] MEDS ORDERED: 0.9 % SODIUM CHLORIDE 1000ML 1,000 ML IV SCH ×2 (22:00→23:45)
[2018-07-28 22:23] LABS: HEMATOCRIT 40.8 % (42.0-52.0); HEMOGLOBIN 13.8 gm/dl (14.0-18.0); MEAN CELL VOLUME 87.4 fl (81-97); MEAN CORPUSCULAR HGB CONC 33.8 g/dl (32-36); PLATELET COUNT 239 K/uL (130-400); RED BLOOD COUNT 4.67 M/uL (4.40-5.70); RED CELL DISTRIBUTION WIDTH 13.6 % (11.5-14.5)
[2018-07-28 22:28] LABS: MEAN CORPUSCULAR HEMOGLOBIN 29.5 pg (27-33)
[2018-07-28 22:35] LABS: BLOOD UREA NITROGEN 20 mg/dL (6-20); CREATININE 0.8 mg/dL (0.7-1.2); EST GLOMERULAR FILTRATION RATE > 60 mL/min; LIPASE 52 U/L (13-60); TOTAL PROTEIN 7.2 g/dL (6.6-8.7)
[2018-07-28 22:37] LABS: GLUCOSE,RANDOM 130 mg/dL (74-109)
[2018-07-28 22:40] LABS: ALB/GLOB RATIO 1.7 (1.1-1.8); ALBUMIN 4.5 g/dL (4.0-5.0); ALKALINE PHOSPHATASE 47 U/L (40-129); ALT/SGPT 19 U/L (<41); AST/SGOT 25 U/L (10.0-50.0)
[2018-07-28 22:54] LABS: ABSOLUTE NEUTROPHIL COUNT 4.83
[2018-07-28 22:55] LABS: ANISOCYTOSIS 1+; PLATELET ESTIMATE NORMAL (NORMAL)
[2018-07-28] MEDS ORDERED: PROMETHAZINE HCL 25 MG in 0.9 % SODIUM CHLORIDE 100ML 100 ML IVPB ONE (23:31)
[2018-07-28] MEDS ORDERED: DIPHENHYDRAMINE HCL 50 MG/ML VIAL IVP ONE (23:31)
[2018-07-29] MEDS ORDERED: 0.9 % SODIUM CHLORIDE 1000ML 1,000 ML IV PRN (01:43)
[2018-07-29] MEDS: ONDANSETRON HCL IV 4 MG/2 ML VIAL IVP PRN ×5 (02:00→21:40)
[2018-07-29] MEDS: HYDROMORPHONE HCL 2 MG/ML VIAL IV PRN ×10 (02:00→21:40)
--- NOTE | 2018-07-29 08:25 | History & Physical ---
History of Present Illness - Date of Service Date of Service for History & Physical: 07/29/18 - History of Present Illness Admitting Diagnosis: Acute on chronic pancreatitis. Nausea/vomiting. Cystic fibrosis History of Present Illness: 52 yo male presents to [facility] ER for "pancreatitis" with h/o chronic pancreatitis and acute waves "every 6 weeks". 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 Does not see GI or pulmonology, only seeing PCP and getting weaned down on his morphine and dilaudid PO meds. Labs reviewed WNL WBC 6, Hgb 13.8, Hct 40.8, plt 239 Na 139, K 3.6, Cl 101, Anion Gap 16, BUN 20, Cr 0.8, GFR >60, Glucose 130, AST 25, ALT 19, Alk Phos 47, Lipase 52 CT report in ER documentation review no acute process, awaiting report 07/29/18 pt in no acute distress, sitting up in bed, asking any staff member near the room for ice chips. Lungs CTA, abd BSx4, not TTP. Pt asking for more nausea meds and ice chips. Reglan added to zofran for nausea control (as tolerated last admission for pancreatitis). POC reviewed with pt to increase diet to PO tolerance and d/c to have pt return to his home morphine regimen. Pt verbalized he is down to 100mg BID morphine and [facility] confirms pt fill 30 days approx a week ago. Pt does not see GI but reports he takes pancreatic enzyme replacement daily but has not been able to tolerate them since saturday. POC allowing ice chips, nausea meds and increase to CLD when nausea more tolerated. Changing IVF to D5K20 1/2 NS at 125/hr until tolerating PO. repeat labs in the am. PCP Juan Antonio Saturday, DO Specialist GI- none Pulm- none Travel Screening - Travel/Exposure Within Last 30 Days Have you traveled within the last 30 days?: No - Travel/Exposure Within Last Year Have you traveled outside the [place] in the last year?: No - Additonal Travel Details Have you been exposed to anyone with a communicable illness?: No - Travel Symptoms Symptom Screening: Fever (Subjective), Vomiting Review of Systems Constitutional: Denies: Chills, Fever, Malaise, Night sweats Eyes: Denies: Eye discharge, Eye pain ENT: Denies: Congestion, Ear pain, Epistaxis Respiratory: Denies: Cough, Dyspnea Cardiovascular: Denies: Chest pain, Dyspnea on exertion Endocrine: Denies: Fatigue, Heat or cold intolerance Gastrointestinal: Reports: Abdominal pain, Nausea, Vomiting Genitourinary: Denies: Testicular pain, Testicular mass Musculoskeletal: Denies: Arthralgia, Back pain Skin: Denies: Bruising, Change in color Neurological: Denies: Abnormal gait, Confusion, Headache, Seizure Psychiatric: Denies: Anxiety Hematological/Lymphatic: Denies: Anemia, Blood Clots Past Medical History - SOCIAL HISTORY Smoking Status: Never smoker - RESPIRATORY Hx Respiratory Disorders: No - CARDIOVASCULAR Hx Cardio Disorders: Yes Hx Deep Vein Thrombosis: Yes - NEURO Hx Neuro Disorders: No - GI Hx GI Disorders: Yes Hx Abdominal Pain: Yes Hx Nausea/Vomiting: Yes Hx Pancreatitis: Yes Comment:: pancreatitis frequently. - Hx Genitourinary Disorders: Yes Hx Kidney Stones: Yes - ENDOCRINE Hx Endocrine Disorders: No Hx Diabetes: No Hx Thyroid Disease: No - MUSCULOSKELETAL Hx Musculoskeletal Disorders: No - PSYCH Hx Psych Problems: Yes Hx Depression: Yes - HEMATOLOGY/ONCOLOGY Hx Hematology/Oncology Disorders: No Family Medical History Any Significant Family History?: Yes Family Hx Comment (NOT TO BE USED IN PLACE OF ITEMS BELOW): DAUGHTER-CF carrier Hx Alcohol Use: Father Hx Anxiety: Mother Hx Cancer: Grandparents Hx Heart Disease: Father Hx HTN: Grandparents H&P Meds/Allergies - Allergies Allergies: Allergies Allergy/AdvReac Type Severity Reaction Status Date / Time fentanyl [From Duragesic] AdvReac Severe HYPERSENSIT Unverified 06/05/18 10:43 IVITY - Home Medications Home Medications Medication Instructions Recorded Confirmed Last Taken Furosemide [Lasix] 20 mg PO DAILY 07/29/18 07/29/18 Unknown Hydromorphone HCl [Dilaudid] 2 mg PO BID 07/29/18 07/29/18 Unknown Pantoprazole Sodium 40 mg PO BID 07/29/18 07/29/18 Unknown - Active Medications Active Medications: Current Medications Enoxaparin Sodium (Lovenox) 40 mg SQ DAILY [facility] Hydromorphone HCl (Dilaudid) 1 mg IV Q2H PRN PRN Reason: PAIN - MOD TO SEVERE (5-10) Last Admin: 07/29/18 06:25 Dose: 1 mg Documented by: Sodium Chloride () 1,000 mls @ 125 mls/hr IV .Q8H PRN PRN Reason: LARGE VOLUME IV Ondansetron HCl (Zofran) 4 mg IVP Q4H PRN PRN Reason: NAUSEA Last Admin: 07/29/18 06:25 Dose: 4 mg Documented by: Physical Exam - Vital Signs Vital Signs: Vital Signs - Last 24 Hrs Temp Pulse Pulse Resp BP Pulse Ox 07/29/18 01:45 98.3 F 71 18 128/72 96 07/29/18 01:15 89 16 109/67 95 07/29/18 00:09 98.1 F 89 18 96/62 95 07/28/18 21:44 100.5 F H 74 18 143/79 98 - General General Appearance: Alert, Oriented x3, Cooperative, No acute distress Limitations: No limitations - Head Head exam: Atraumatic, Normocephalic, Normal inspection Head exam detail: negative: Abrasion, Contusion, Padgett's sign, General tenderness, Hematoma, Laceration - Eye Eye exam: Normal appearance. negative: Conjunctival injection, Periorbital swelling, Periorbital tenderness, Scleral icterus - ENT ENT exam: Normal exam, Mucous membranes moist Ear exam: negative: Auricular hematoma, Auricular trauma Nasal Exam: negative: Active bleeding, Discharge, Dried blood, Foreign body Mouth exam: negative: Drooling, Laceration, Muffled voice, Tongue elevation Throat exam: negative: Tonsillar erythema, Tonsillomegaly, R peritonsillar mass, L peritonsillar mass - Neck Neck exam: Normal inspection. negative: Meningismus, Tenderness - Respiratory Respiratory exam: Normal lung sounds bilaterally. negative: Rales, Respiratory distress, Rhonchi, Stridor - Cardiovascular Cardiovascular Exam: Regular rate, Normal rhythm, Normal heart sounds Peripheral Pulses: 2+: Radial (R), Radial (L), Dorsalis Pedis (R), Dorsalis Pedis (L) - GI/Abdominal GI/Abdominal exam: Soft, Normal bowel sounds. negative: Rebound, Rigid, Tenderness - Rectal Rectal exam: Deferred - exam: Deferred - Extremities Extremities exam: Normal inspection. negative: Pedal edema, Tenderness - Back Back exam: Denies: CVA tenderness (R), CVA tenderness (L) - Neurological Neurological exam: Alert, Normal gait, Oriented X3 - Psychiatric Psychiatric exam: Normal affect, Normal mood, Other (pt is resistent to provider questions) - Skin Skin exam: Normal color. negative: Abrasion Type of lesion: negative: abrasion Results - Labs Result Diagrams: 07/28/18 21:00 07/28/18 21:00 Labs Last 24 Hours: Laboratory Results - last 24 hr 07/28/18 07/28/18 21:00 21:00 WBC 6.0 RBC 4.67 Hgb 13.8 L Hct 40.8 L MCV 87.4 MCH 29.5 MCHC 33.8 RDW 13.6 Plt Count 239 MPV 10.0 Neutrophils % 81.0 H Band Neutrophils % 1.0 Eosinophils % Not Reportable Basophils % Not Reportable Absolute Neutrophils 4.83 Lymphocytes 15.0 L Monocytes 3.0 Platelet Estimate Normal Anisocytosis 1+ Sodium 139 Potassium 3.6 Chloride 101 Carbon Dioxide 22.0 Anion Gap 16.0 BUN 20 Creatinine 0.8 Estimated GFR > 60 Random Glucose 130 H Calcium 9.7 Total Bilirubin 0.60 AST 25 ALT 19 Alkaline Phosphatase 47 Total Protein 7.2 Albumin 4.5 Globulin 2.7 Albumin/Globulin Ratio 1.7 Lipase 52 - Imaging and Cardiology CT scan - abdomen Status: Pending VTE H&P Assessment - Risk for VTE Risk for VTE: Yes Risk Level: Moderate Risk Assessment Date: 07/29/18 Risk Assessment Time: 08:24 VTE Orders Placed or Will Be Placed: Yes Plan - Detailed Diagnosis and Plan (1) Nausea & vomiting Current Visit: Yes Status: Acute Qualifiers: Vomiting type: unspecified Vomiting Intractability: non-intractable Qualified Code(s): R11.2 - Nausea with vomiting, unspecified Base Code: R11.2 - NAUSEA WITH VOMITING, UNSPECIFIED Comment: 07/29/18: - pt w/ intractable n/v - cont IVF D5K20 1/2NS @ 125mL/hr, Reglan 5mg Q6H PRN, Zofran 4mg Q4H PRN - advance diet as tolerated, adding ice chips - no emesis this AM (2) Abdominal pain Current Visit: No Status: Acute Qualifiers: Abdominal location: epigastric Qualified Code(s): R10.13 - Epigastric pain Base Code: R10.9 - UNSPECIFIED ABDOMINAL PAIN Comment: 07/29/18 -dilaudid 1mg q2h PRN for pain -consider changing to pt home meds 100mg morphine BID PO when PO tolerated and D/C for PCP f/u (3) DVT prophylaxis Current Visit: No Status: Acute Base Code: [id number] - Comment: 07/29/18 lovenox 40meq daily (4) Full code status Current Visit: No Status: Acute Base Code: Z78.9 - OTHER SPECIFIED HEALTH STATUS Comment: 07/29/18 - FULL CODE
[2018-07-29] MEDS: ENOXAPARIN 40 MG/0.4 ML SYR SQ SCH (09:57)
--- NOTE | 2018-07-29 09:57 | CT SCAN REPORT ---
EXAM: CT OF THE ABDOMEN AND PELVIS WITH CONTRAST HISTORY: EPIGASTRIC PAIN. LEFT FLANK PAIN. CHRONIC PANCREATITIS HISTORY. PRIOR APPENDECTOMY. TECHNIQUE: Contrast enhanced helical CT examination of the abdomen and pelvis was performed including delayed images through the kidneys with 50 ml of Omnipaque 300 utilized. Comparison: CT abdomen and pelvis without contrast dated 07/18/13. FINDINGS: A small sliding type hiatal hernia is suspected. The wall of the intrathoracic portion of the stomach appears borderline to mildly prominent in thickness likely due to incomplete distention. The heart is not enlarged. No pleural or pericardial effusion. There is mild dependent atelectasis suggested within the right lung base. The visualized lung bases are otherwise clear. No pleural or pericardial effusion. Mild decreased density of the liver relative to the spleen is consistent with steatosis. There is a tiny focus of hypodensity questionable within the liver dome as seen on series 3 image 17 measuring 4 mm. This cannot be further characterized. There is a tiny hypodense focus within the posterior posterior segment of the lower right liver lobe (segment 6). This measures 3 mm. It is nonspecific, but likely a cyst. The liver is otherwise normal in appearance. The spleen is not enlarged and is homogeneous in echotexture. A couple small accessory spleens are noted adjacent to the anterolateral margin of the spleen proper. The pancreas, adrenal glands, and kidneys are normal in appearance. The gallbladder is not identified and is likely surgically absent. No biliary ductal dilatation is seen. No intraabdominal nor retroperitoneal lymphadenopathy. There is a borderline enlarged gastrohepatic ligament lymph node redemonstrated adjacent to the left margin of the portal vein. This measures approximately 10 mm in short axis diameter. It is nonspecific, but likely reactive. There is minimal atherosclerosis of the abdominal aorta. No aneurysm of the abdominal aorta nor iliac arteries. No new pelvis mass, lymphadenopathy, or free pelvic fluid. No intrinsic urinary bladder abnormality identified. No definite bowel wall thickening nor bowel dilatation. The appendix is visualized and normal in appearance. The history states prior appendectomy. There is a small fat filled umbilical hernia. This is uncomplicated and is unchanged. No lytic or blastic bone lesion. There are degenerative changes scattered throughout the visualized spine. Minimal retrolisthesis of L2 on L3 likely relates to degenerative disk and facet degenerative changes. This appears slightly more pronounced in the interval. IMPRESSION: 1. NO CT EVIDENCE OF AN ACUTE INTRAABDOMINAL NOR INTRAPELVIC PROCESS. 2. MILD DIFFUSE HEPATIC STEATOSIS. 3. THERE ARE A COUPLE TOO SMALL TO CHARACTERIZE HYPODENSE FOCI WITHIN THE LIVER. THESE ARE NONSPECIFIC, BUT STATISTICALLY ARE LIKELY CYSTS OR HEMANGIOMATA. THEY ARE NOT WELL SEEN ON THE PRIOR EXAMINATION THOUGH COULD HAVE BEEN OBSCURED BY MORE PRONOUNCED STEATOSIS. 4. STATUS POST CHOLECYSTECTOMY. NORMAL APPENDIX. 5. NOT MENTIONED ABOVE ARE A FEW POSSIBLE DIVERTICULA WITHIN THE LEFT COLON WITHOUT EVIDENCE OF DIVERTICULITIS. 6. MILD DEPENDENT ATELECTASIS WITHIN THE RIGHT LUNG BASE. JOB NUMBER: [id number] [facility]
[2018-07-29] MEDS: METOCLOPRAMIDE HCL 10 MG/2 ML VIAL IVP PRN ×2 (10:24→14:55)
[2018-07-29] MEDS: POTASSIUM CHLORIDE/D5-0.45NACL 20 MEQ/1,000 ML BAG IV SCH ×2 (10:28→19:18)
[2018-07-29] MEDS: MORPHINE SULFATE 30MG TABLET.ER PO SCH ×3 (14:40→22:13)
[2018-07-30] MEDS: HYDROMORPHONE HCL 2 MG/ML VIAL IV PRN ×9 (00:12→22:38)
[2018-07-30] MEDS: METOCLOPRAMIDE HCL 10 MG/2 ML VIAL IVP PRN ×3 (00:12→17:56)
[2018-07-30] MEDS: ONDANSETRON HCL IV 4 MG/2 ML VIAL IVP PRN ×4 (02:16→20:29)
[2018-07-30] MEDS: POTASSIUM CHLORIDE/D5-0.45NACL 20 MEQ/1,000 ML BAG IV SCH ×3 (03:09→20:31)
[2018-07-30] MEDS: ENOXAPARIN 40 MG/0.4 ML SYR SQ SCH (10:54)
[2018-07-30] MEDS: MORPHINE SULFATE 30MG TABLET.ER PO SCH ×3 (10:54→22:37)
--- NOTE | 2018-07-30 12:16 | Physician Progress Note ---
Subjective - Date Date of Physician Progress Note: 07/30/18 Objective - Vital Signs Vital Signs: Vital Signs - Last 24 Hrs Temp Pulse Resp BP Pulse Ox 07/30/18 09:00 18 07/30/18 08:29 98.1 F 65 18 142/67 95 07/30/18 01:00 98.1 F 49 L 16 151/73 95 07/29/18 21:00 16 07/29/18 17:00 98.8 F 62 18 150/76 98 - General General Appearance: Alert, Oriented x3, Cooperative, No acute distress Limitations: No limitations - Head Head exam: Atraumatic, Normocephalic, Normal inspection Head exam detail: negative: Abrasion, Contusion, Padgett's sign, General tend erness, Hematoma, Laceration - Eye Eye exam: Normal appearance. negative: Conjunctival injection, Periorbital swelling, Periorbital tenderness, Scleral icterus - ENT ENT exam: Normal exam, Mucous membranes moist Ear exam: negative: Auricular hematoma, Auricular trauma Nasal Exam: negative: Active bleeding, Discharge, Dried blood, Foreign body Mouth exam: negative: Drooling, Laceration, Muffled voice, Tongue elevation Throat exam: negative: Tonsillar erythema, Tonsillomegaly, R peritonsillar mass, L peritonsillar mass - Neck Neck exam: Normal inspection. negative: Meningismus, Tenderness - Respiratory Respiratory exam: Normal lung sounds bilaterally. negative: Rales, Respiratory distress, Rhonchi, Stridor - Cardiovascular Cardiovascular Exam: Regular rate, Normal rhythm, Normal heart sounds Peripheral Pulses: 2+: Radial (R), Radial (L), Dorsalis Pedis (R), Dorsalis Pedis (L) - GI/Abdominal GI/Abdominal exam: Soft, Normal bowel sounds. negative: Rebound, Rigid, Tenderness - Rectal Rectal exam: Deferred - exam: Deferred - Extremities Extremities exam: Normal inspection. negative: Pedal edema, Tenderness - Back Back exam: Denies: CVA tenderness (R), CVA tenderness (L) - Neurological Neurological exam: Alert, Normal gait, Oriented X3 - Psychiatric Psychiatric exam: Normal affect, Normal mood - Skin Skin exam: Normal color. negative: Abrasion Type of lesion: negative: abrasion Assessment and Plan - Assessment and Plan (1) Nausea & vomiting Current Visit: Yes Status: Acute Qualifiers: Vomiting type: unspecified Vomiting Intractability: non-intractable Qualified Code(s): R11.2 - Nausea with vomiting, unspecified Base Code: R11.2 - NAUSEA WITH VOMITING, UNSPECIFIED Comment: 07/30/18 -pt was tolerating CLD until later in the AM but is feeling generally better -pain is 7/10, pt is able to tolerate his morphine tablets (baseline pain meds) -giving pt 1 more day to be able to tolereate CLD, if still having pain and vomiting will have to consider transfer to facility that has GI for consult 07/29/18: - pt w/ intractable n/v - cont IVF D5K20 1/2NS @ 125mL/hr, Reglan 5mg Q6H PRN, Zofran 4mg Q4H PRN - advance diet as tolerated, adding ice chips - no emesis this AM (2) Abdominal pain Current Visit: No Status: Acute Qualifiers: Abdominal location: epigastric Qualified Code(s): R10.13 - Epigastric pain Base Code: R10.9 - UNSPECIFIED ABDOMINAL PAIN Comment: 07/30/18 -pt is back on baseline morphine 90mg BID (regular is 100mg BID) and dilaudid 1mg q2hr for break through -possible that pt was having increased pain from narcotic withdrawal as pt has been on morphine ER for several years -adv diet as tolerated, pt req more time before to recover before considering transfer as this is a chronic issue and labs/ct negative 07/29/18 -dilaudid 1mg q2h PRN for pain -consider changing to pt home meds 100mg morphine BID PO when PO tolerated and D/C for PCP f/u (3) DVT prophylaxis Current Visit: No Status: Acute Base Code: [id number] - Comment: 07/30/18 lovenox 40meq daily (4) Full code status Current Visit: No Status: Acute Base Code: Z78.9 - OTHER SPECIFIED HEALTH STATUS Comment: 07/30/18 - FULL CODE Results - Labs Result Diagrams: 07/28/18 21:00 07/28/18 21:00 - Imaging and Cardiology CT scan - abdomen Status: Report reviewed DVT/PE Assessment - Risk for VTE Risk for VTE: No Risk Level: Moderate Risk Assessment Date: 07/29/18 Risk Assessment Time: 08:24 VTE Orders Placed or Will Be Placed: Yes - Active Medicaitons Current Medications: Current Medications Enoxaparin Sodium (Lovenox) 40 mg SQ DAILY [facility] Last Admin: 07/30/18 10:54 Dose: 40 mg Documented by: Hydromorphone HCl (Dilaudid) 1 mg IV Q2H PRN PRN Reason: PAIN - MOD TO SEVERE (5-10) Last Admin: 07/30/18 08:29 Dose: 1 mg Documented by: Potassium Chloride/Dextrose/Sod Cl (Dext 5% Nacl 0.45% Kcl 20 Meq) 20 meq in 1,000 mls @ 125 mls/hr IV Q8H [facility] Last Admin: 07/30/18 03:09 Dose: 125 mls/hr Documented by: Metoclopramide HCl (Reglan) 5 mg IVP Q6H PRN PRN Reason: NAUSEA Stop: 07/31/18 10:08 Last Admin: 07/30/18 08:30 Dose: 5 mg Documented by: Morphine Sulfate () 90 mg PO Q12HR [facility] Last Admin: 07/30/18 10:54 Dose: Not Given Documented by: Ondansetron HCl (Zofran) 4 mg IVP Q4H PRN PRN Reason: NAUSEA Last Admin: 07/30/18 10:51 Dose: 4 mg Documented by: TANESHA Plan - Labs Result Diagrams: 07/28/18 21:00 07/28/18 21:00
[2018-07-30 12:47] LABS: BLOOD UREA NITROGEN 11 mg/dL (6-20)
[2018-07-30 12:48] LABS: CREATININE 0.7 mg/dL (0.7-1.2); EST GLOMERULAR FILTRATION RATE > 60 mL/min
[2018-07-30 12:50] LABS: GLUCOSE,RANDOM 106 mg/dL (74-109)
[2018-07-31] MEDS: HYDROMORPHONE HCL 2 MG/ML VIAL IV PRN ×6 (00:32→12:08)
[2018-07-31] MEDS: METOCLOPRAMIDE HCL 10 MG/2 ML VIAL IVP PRN ×2 (00:32→09:23)
[2018-07-31] MEDS: ONDANSETRON HCL IV 4 MG/2 ML VIAL IVP PRN ×2 (02:32→06:46)
[2018-07-31] MEDS: POTASSIUM CHLORIDE/D5-0.45NACL 20 MEQ/1,000 ML BAG IV SCH (04:36)
--- NOTE | 2018-07-31 10:47 | Discharge Summary ---
Providers Discharge Summary Date: 07/31/18 Date of admission: 07/30/18 10:00 Expected Date of Discharge: 07/31/18 Attending physician: BRAYAN HERNÁNDEZ Primary care physician: NATALYA SATURDAYAysha Physical Exam - Vital Signs Vital Signs: Vital Signs - Last 24 Hrs Temp Pulse Resp BP Pulse Ox 07/31/18 09:40 98.1 F 48 L 18 134/80 97 07/30/18 21:00 18 07/30/18 20:00 98.9 F 59 L 20 137/83 96 07/30/18 17:00 97.9 F 62 18 145/73 98 - General General Appearance: Alert, Oriented x3, Cooperative, Mild distress Limitations: No limitations - Head Head exam: Atraumatic, Normocephalic, Normal inspection Head exam detail: negative: Abrasion, Contusion, Padgett's sign, General tenderness, Hematoma, Laceration - Eye Eye exam: Normal appearance. negative: Conjunctival injection, Periorbital swelling, Periorbital tenderness, Scleral icterus - ENT ENT exam: Normal exam, Mucous membranes moist Ear exam: negative: Auricular hematoma, Auricular trauma Nasal Exam: negative: Active bleeding, Discharge, Dried blood, Foreign body Mouth exam: negative: Drooling, Laceration, Muffled voice, Tongue elevation Throat exam: negative: Tonsillar erythema, Tonsillomegaly, R peritonsillar mass, L peritonsillar mass - Neck Neck exam: Normal inspection. negative: Meningismus, Tenderness - Respiratory Respiratory exam: Normal lung sounds bilaterally. negative: Rales, Respiratory distress, Rhonchi, Stridor - Cardiovascular Cardiovascular Exam: Regular rate, Normal rhythm, Normal heart sounds Peripheral Pulses: 2+: Radial (R), Radial (L), Dorsalis Pedis (R), Dorsalis Pedis (L) - GI/Abdominal GI/Abdominal exam: Soft, Normal bowel sounds, Tenderness. negative: Rebound, Rigid - Rectal Rectal exam: Deferred - exam: Deferred - Extremities Extremities exam: Normal inspection. negative: Pedal edema, Tenderness - Back Back exam: Denies: CVA tenderness (R), CVA tenderness (L) - Neurological Neurological exam: Alert, Normal gait, Oriented X3 - Psychiatric Psychiatric exam: Normal affect, Normal mood - Skin Skin exam: Normal color. negative: Abrasion Type of lesion: negative: abrasion Hospitalization - Hospitalization Admission Diagnosis: Acute on chronic pancreatitis. Nausea/vomiting. Cystic fibrosis - Problem List/Discharge Diagnosis (1) Nausea & vomiting Current Visit: Yes Status: Acute Discharge Diagnosis: Vomiting type: unspecified Vomiting Intractability: non-intractable Qualified Code(s): R11.2 - Nausea with vomiting, unspecified Base Code: R11.2 - NAUSEA WITH VOMITING, UNSPECIFIED Comment: 07/31/18 -pt continues to vomit, asking for nausea medications every 2 hours -continues to have pain -Dr Mcneal has accepted care for transfer of care to [facility], awaiting bed placement 07/30/18 -pt was tolerating CLD until later in the AM but is feeling generally better -pain is 7/10, pt is able to tolerate his morphine tablets (baseline pain meds) -giving pt 1 more day to be able to tolereate CLD, if still having pain and vomiting will have to consider transfer to facility that has GI for consult 07/29/18: - pt w/ intractable n/v - cont IVF D5K20 1/2NS @ 125mL/hr, Reglan 5mg Q6H PRN, Zofran 4mg Q4H PRN - advance diet as tolerated, adding ice chips - no emesis this AM (2) Abdominal pain Current Visit: No Status: Acute Discharge Diagnosis: Abdominal location: epigastric Qualified Code(s): R10.13 - Epigastric pain Base Code: R10.9 - UNSPECIFIED ABDOMINAL PAIN Comment: 07/31/18 -pt continues to have pain, taking home morphine and dilaudid q2H with little termite control servicer relief 07/30/18 -pt is back on baseline morphine 90mg BID (regular is 100mg BID) and dilaudid 1mg q2hr for break through -possible that pt was having increased pain from narcotic withdrawal as pt has been on morphine ER for several years -adv diet as tolerated, pt req more time before to recover before considering transfer as this is a chronic issue and labs/ct negative 07/29/18 -dilaudid 1mg q2h PRN for pain -consider changing to pt home meds 100mg morphine BID PO when PO tolerated and D/C for PCP f/u (3) DVT prophylaxis Current Visit: No Status: Acute Base Code: [id number] - Comment: 07/31/18 lovenox 40meq daily (4) Full code status Current Visit: No Status: Acute Base Code: Z78.9 - OTHER SPECIFIED HEALTH STATUS Comment: 07/31/18 - FULL CODE - Hospitalization Course Disposition: Acute Care Hospital Transfer Hospital Course: 52 yo male presents to [facility] ER for "pancreatitis" with h/o chronic pancreatitis and acute waves "every 6 weeks". 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 Does not see GI or pulmonology, only seeing PCP and getting weaned down on his morphine and dilaudid PO meds. Labs reviewed WNL WBC 6, Hgb 13.8, Hct 40.8, plt 239 Na 139, K 3.6, Cl 101, Anion Gap 16, BUN 20, Cr 0.8, GFR >60, Glucose 130, AST 25, ALT 19, Alk Phos 47, Lipase 52 CT report in ER documentation review no acute process, awaiting report 07/29/18 pt in no acute distress, sitting up in bed, asking any staff member near the room for ice chips. Lungs CTA, abd BSx4, not TTP. Pt asking for more nausea meds and ice chips. Reglan added to zofran for nausea control (as tolerated last admission for pancreatitis). POC reviewed with pt to increase diet to PO tolerance and d/c to have pt return to his home morphine regimen. Pt verbalized he is down to 100mg BID morphine and [facility] confirms pt fill 30 days approx a week ago. Pt does not see GI but reports he takes pancreatic enzyme replacement daily but has not been able to tolerate them since saturday. POC allowing ice chips, nausea meds and increase to CLD when nausea more tolerated. Changing IVF to D5K20 1/2 NS at 125/hr until tolerating PO. repeat labs in the am. PCP Natalya Saturday, DO Specialist GI- none Pulm- none Procedures: Imaging and X-Rays 07/28/18 22:41 ABDOMEN/PELVIS W CONTRAST [CT] Stat Abnormal Labs: Abnormal Lab Results 07/28/18 07/28/18 07/30/18 Range/Units 21:00 21:00 12:29 Hgb 13.8 L (14.0-18.0) gm/dl Hct 40.8 L (42.0-52.0) % Neutrophils % 81.0 H (47-80) % Lymphocytes 15.0 L (16-45) % Anion Gap 6.0 L (7-16) Random Glucose 130 H (74-109) mg/dL Calcium 8.5 L (8.6-10.0) mg/dL Condition at Discharge: (2) Stable Discharge Medications - Discharge Medications Home Medications: Ambulatory Orders Amiloride HCl 5 mg PO DAILY 07/19/13 [Last Taken 07/06/17] Aspirin 81 mg PO DAILY 07/19/13 [Last Taken 07/06/17] Atenolol 25 mg PO DAILY 07/19/13 [Last Taken 07/06/17] Fenofibrate Nanocrystallized [Tricor] 145 mg PO DAILY 07/19/13 [Last Taken 07/06/17] Lipase/Protease/Amylase [Pancrelipase 5,000 Dr Capsule] 3 tab PO WMEALS 07/19/13 [Last Taken 07/06/17] Metoclopramide HCl [Reglan] 20 mg PO QHS 07/19/13 [Last Taken 07/06/17] Ondansetron HCl [Zofran] 8 mg PO BID 07/19/13 [Last Taken 07/06/17] Potassium Citrate [Potassium Citrate ER] 20 meq PO QAM 07/19/13 [Last Taken 07/06/17] Prochlorperazine Maleate 5 mg PO BID 07/19/13 [Last Taken 07/06/17] Potassium Citrate [Potassium Citrate ER] 40 meq PO QHS 02/12/17 [Last Taken 07/19] Morphine Sulfate [Ms Contin] 100 mg PO Q12H tab 06/05/18 [Last Taken Unknown] Furosemide [Lasix] 20 mg PO DAILY 07/29/18 [Last Taken Unknown] Hydromorphone HCl [Dilaudid] 2 mg PO BID 07/29/18 [Last Taken Unknown] Pantoprazole Sodium 40 mg PO BID 07/29/18 [Last Taken Unknown] Discharge Plan - Discharge Instructions Quality Measures - Quality Measures Quality Measures: Documentation of Current Medications in Medical Record, Screening for High Blood Pressure and F/U Documented - Current Medications Quality Measure: Measure #130: Documentation of Current Medications Documentation of Current Medications: <Current Medications Documented/Reviewed> [G8427] - Blood Pressure Screening Quality Measure: Screening for High Blood Pressure and Follow-Up Documented Does Patient Have Any of the Following: Active Dx of HTN Blood Pressure Classification: Pre-Hypertensive BP Reading Systolic Measurement: 134 Diastolic Measurement: 80 Screening for High Blood Pressure: Patient Exclusion, Hx of HTN [G9744] - Elder Abuse Suspicion Index EASI Reference Information: Page MARSHALL, Rox Capps, Emperatriz Amezquita, Jim Potter.Development and validation of a tool to assist physicians identification of elder abuse: The Elder Abuse Suspicion Index (EASI ). Journal of Elder Abuse and Neglect, 2008; 20 (3): 276-300.
[2018-07-31] MEDS: MORPHINE SULFATE 30MG TABLET.ER PO SCH (11:58)
[2018-07-31] MEDS: ENOXAPARIN 40 MG/0.4 ML SYR SQ SCH (11:58)
[2018-07-31] MEDS ORDERED: HEPARIN SODIUM FLUSH 100 UNITS/ML SYR 5ML IVP ONE (13:35)
[2018-07-31] MEDS ORDERED: 0.9 % SODIUM CHLORIDE 10ML SYR IVP ONE (13:36)
== END 2018-07-31 13:45 | disposition short-term general hospital (02) ==
LOC: ER 21:39 → MEDSURG 07-29 01:32 → UNDOADMOB 07-29 01:32 → MEDSURG 07-30 10:00
PROVIDERS: ADMIT Internal Medicine; ATTEND Internal Medicine
DX: K85.90 Acute pancreatitis without necrosis or infection, unspecified (principal); R10.13 Epigastric pain; E84.9 Cystic fibrosis, unspecified; Z90.49 Acquired absence of other specified parts of digestive tract; Z87.442 Personal history of urinary calculi; Z86.718 Personal history of other venous thrombosis and embolism
CPT/HCPCS: 74177; 80048; 80053; 83690; 85027; 96365; 96374; 96375; 96376; 99217; 99220; 99226; 99285; J1200; J1650; J2405; J2550; J2765; J3480; J7030

== ENCOUNTER 2018-10-19 03:23 | Inpatient (IN) | payer MEDICARE ==
[2018-10-19] MEDS ORDERED: 0.9 % SODIUM CHLORIDE 1,000 ML BAG IV ONE (03:32)
[2018-10-19] MEDS ORDERED: ONDANSETRON HCL IV 4 MG/2 ML VIAL IV ONE (03:32)
[2018-10-19] MEDS ORDERED: HYDROMORPHONE HCL 2 MG/ML VIAL IVP ONE (03:40)
[2018-10-19 03:43] LABS: ABSOLUTE NEUTROPHIL COUNT 5.56; BASO % 0.2 % (0-6); EOS % 0.1 % (0-6); GRAN % 66.9 % (47-80); HEMATOCRIT 43.4 % (42.0-52.0); LYMPH % 25.7 % (16-45); MEAN CELL VOLUME 83.6 fl (81-97); MEAN CORPUSCULAR HEMOGLOBIN 28.9 pg (27-33); MEAN CORPUSCULAR HGB CONC 34.6 g/dl (32-36); MEAN PLATELET VOLUME 10.1 fl (7.4-10.4); MONO % 7.1 % (0-9); PLATELET COUNT 289 K/uL (130-400); RED BLOOD COUNT 5.19 M/uL (4.40-5.70); WHITE BLOOD COUNT W/O DIFF 8.3 K/uL (4.2-12.2)
--- NOTE | 2018-10-19 03:44 | Emergency Department Record ---
History of Present Illness - General Chief Complaint: Abdominal Pain Stated Complaint: ABDOMINAL PAIN Time Seen by Provider: 10/19/18 03:28 Source: Patient Mode of Arrival: Ambulatory Limitations: No limitations - History of Present Illness Initial Comments: pt has ap and vomiting for the last 24hrs and states it is his pancreatitis MD Complaint: Abdominal pain Onset/Timin -: Days(s) Location: [facility] Radiation: None Migration to: No migration Severity scale (1-10): 10 Quality: Sharp Consistency: Constant Improves With: Nothing Worsens With: Vomiting - Related Data Allergies Allergy/AdvReac Type Severity Reaction Status Date / Time fentanyl [From Duragesic] AdvReac Severe HYPERSENSIT Verified 10/19/18 03:41 IVITY Travel Screening - Travel/Exposure Within Last 30 Days Have you traveled within the last 30 days?: No - Travel/Exposure Within Last Year Have you traveled outside the [place] in the last year?: No - Additonal Travel Details Have you been exposed to anyone with a communicable illness?: No - Travel Symptoms Symptom Screening: None Review of Systems Reviewed: No additional complaints except as noted below Constitutional: Reports: As per HPI. Denies: Chills, Fever, Malaise, Night sweats, Weakness, Weight change Eyes: Reports: As per HPI. Denies: Eye discharge, Eye pain, Photophobia, Vision change ENT: Reports: As per HPI. Denies: Congestion, Dental pain, Ear pain, Epistaxis, Hearing loss, Throat pain Respiratory: Reports: As per HPI. Denies: Cough, Dyspnea, Hemoptysis, Stridor, Wheezes Cardiovascular: Reports: As per HPI. Denies: Arrhythmia, Chest pain, Dyspnea on exertion, Edema, Murmurs, Orthopnea, Palpitations, Paroxysmal nocturnal dyspnea, Rheumatic Fever, Syncope Endocrine: Reports: As per HPI. Denies: Fatigue, Heat or cold intolerance, Polydipsia, Polyuria Gastrointestinal: Reports: As per HPI. Denies: Abdominal pain, Constipation, Diarrhea, Hematemesis, Hematochezia, Melena, Nausea, Vomiting Genitourinary: Reports: As per HPI. Denies: Dysuria, Frequency, Hematuria, Incontinence, Retention, Testicular pain, Testicular mass, Urgency Musculoskeletal: Reports: As per HPI. Denies: Arthralgia, Back pain, Gout, Joint swelling, Myalgia, Neck pain Skin: Reports: As per HPI. Denies: Bruising, Change in color, Change in hair/nails, Lesions, Pruritus, Rash Neurological: Reports: As per HPI. Denies: Abnormal gait, Confusion, Headache, Numbness, Paresthesias, Seizure, Tingling, Tremors, Vertigo, Weakness Psychiatric: Reports: As per HPI. Denies: Anxiety, Auditory hallucinations, Depression, Homicidal thoughts, Suicidal thoughts, Visual hallucinations Hematological/Lymphatic: Reports: As per HPI. Denies: Anemia, Blood Clots, Easy bleeding, Easy bruising, Swollen glands Past Medical History - SOCIAL HISTORY Smoking Status: Never smoker Alcohol Use: None Drug Use: None - RESPIRATORY Hx Respiratory Disorders: No - CARDIOVASCULAR Hx Cardio Disorders: Yes Hx Deep Vein Thrombosis: Yes - NEURO Hx Neuro Disorders: No - GI Hx GI Disorders: Yes Hx Abdominal Pain: Yes Hx Nausea/Vomiting: Yes Hx Pancreatitis: Yes Comment:: pancreatitis frequently. - Hx Genitourinary Disorders: Yes Hx Kidney Stones: Yes - ENDOCRINE Hx Endocrine Disorders: No Hx Diabetes: No Hx Thyroid Disease: No - MUSCULOSKELETAL Hx Musculoskeletal Disorders: No - PSYCH Hx Psych Problems: No - HEMATOLOGY/ONCOLOGY Hx Hematology/Oncology Disorders: No Family Medical History Any Significant Family History?: Yes Family Hx Comment (NOT TO BE USED IN PLACE OF ITEMS BELOW): DAUGHTER-CF carrier Hx Alcohol Use: Father Hx Anxiety: Mother Hx Cancer: Grandparents Hx Heart Disease: Father Hx HTN: Grandparents Physical Exam - General General Appearance: Alert, Oriented x3, Cooperative, Moderate distress - Head Head exam: Normal inspection - Eye Eye exam: Normal appearance, PERRL, EOMI Pupils: Normal accommodation - ENT ENT exam: Normal exam, Mucous membranes moist, Normal external ear exam, Normal orophraynx Ear exam: Normal external inspection. negative: External canal tenderness Nasal Exam: Normal inspection. negative: Discharge, Sinus tenderness Mouth exam: Normal external inspection, Tongue normal Teeth exam: Normal inspection. negative: Dental caries Throat exam: Normal inspection. negative: Tonsillar erythema, Tonsillar exudate - Neck Neck exam: Normal inspection, Full ROM. negative: Tenderness - Respiratory Respiratory exam: Normal lung sounds bilaterally. negative: Respiratory distress - Cardiovascular Cardiovascular Exam: Normal rhythm, Normal heart sounds, Tachycardia - GI/Abdominal GI/Abdominal exam: Soft, Normal bowel sounds, Tenderness - Rectal Rectal exam: Deferred - exam: Deferred - Extremities Extremities exam: Normal inspection, Full ROM, Normal capillary refill. negative: Tenderness - Back Back exam: Reports: Normal inspection, Full ROM. Denies: Muscle spasm, Rash noted, Tenderness - Neurological Neurological exam: Alert, CN II-XII intact, Normal gait, Oriented X3 - Psychiatric Psychiatric exam: Normal affect, Normal mood - Skin Skin exam: Dry, Intact, Normal color, Warm Course Vital Signs 10/19/18 03:28 Pulse Rate [ 122 H Bilateral Radial] Respiratory 28 H Rate Blood Pressure 143/117 [Left Arm] Pulse Ox 96 - Reevaluation(s) Reevaluation #1: 10/19/18 06:22 pt resting. feels better Medical Decision Making - Lab Data Result diagrams: 10/19/18 03:41 10/19/18 03:41 Disposition Disposition: Admit Clinical Impression: Acute pancreatitis Qualifiers: Pancreatitis type: unspecified pancreatitis type Acute pancreatitis complication: unspecified Qualified Code(s): K85.90 - Acute pancreatitis without necrosis or infection, unspecified Disposition: Still a Patient at [facility] Decision to Admit: Admit from ER Decision to Admit Date: 10/19/18 Decision to Admit Time: 04:07 Quality - Quality Measures Quality Measures: N/A - Blood Pressure Screening Does Patient Have Any of the Following: No Blood Pressure Classification: Pre-Hypertensive BP Reading Systolic Measurement: 124 Diastolic Measurement: 78 Screening for High Blood Pressure: < Pre-Hypertensive BP, F/U Documented > [G8950] Pre-Hypertensive Follow-up Interventions: Follow-up with rescreen every year.
[2018-10-19 03:56] LABS: BLOOD UREA NITROGEN 20 mg/dL (6-20); CREATININE 1.1 mg/dL (0.7-1.2); EST GLOMERULAR FILTRATION RATE > 60 mL/min
[2018-10-19 03:57] LABS: LIPASE 216 U/L (13-60); TOTAL PROTEIN 7.5 g/dL (6.6-8.7)
[2018-10-19 04:01] LABS: GLUCOSE,RANDOM 210 mg/dL (74-109)
[2018-10-19 04:02] LABS: ALBUMIN 4.7 g/dL (4.0-5.0); ALKALINE PHOSPHATASE 47 U/L (40-129); ALT/SGPT 19 U/L (<41); AST/SGOT 25 U/L (10.0-50.0); BILIRUBIN,DIRECT 0.3 mg/dL (0-0.3)
[2018-10-19 04:25] LABS: URINE APPEARANCE CLEAR; URINE BILIRUBIN SMALL (NEGATIVE); URINE BLOOD MODERATE (NEGATIVE); URINE COLOR STRAW; URINE GLUCOSE (UA) NEGATIVE (NEGATIVE); URINE KETONE NEGATIVE (NEGATIVE); URINE LEUKOCYTE ESTERASE NEGATIVE (NEGATIVE); URINE NITRITE NEGATIVE (NEGATIVE); URINE PROTEIN TRACE (NEGATIVE)
[2018-10-19 04:30] LABS: URINE EPITHELIAL CELLS 0 - 2 (FEW); URINE WBC 0 - 2 (0-2/hpf)
[2018-10-19 04:31] LABS: URINE BACTERIA NONE SEEN
[2018-10-19] MEDS ORDERED: ACETAMINOPHEN 500 MG TABLET PO PRN (06:29)
[2018-10-19] MEDS ORDERED: HYDROMORPHONE HCL 2 MG/ML VIAL IV PRN (06:29)
[2018-10-19] MEDS ORDERED: ONDANSETRON HCL IV 4 MG/2 ML VIAL IVP PRN (06:29)
[2018-10-19] MEDS ORDERED: MORPHINE SULFATE 15 MG TABLET.ER PO SCH (06:30)
[2018-10-19] MEDS: 0.9 % SODIUM CHLORIDE 1000ML 1,000 ML IV PRN ×3 (06:56→23:50)
[2018-10-19] MEDS: [UNRECOGNIZED DRUG - REMARK] PO SCH (09:36)
[2018-10-19] MEDS ORDERED: FENOFIBRATE NANOCRYSTALLIZED 145 MG PO SCH (10:00)
[2018-10-19] MEDS ORDERED: POTASSIUM CITRATE 20 MEQ PO SCH (10:00)
[2018-10-19] MEDS ORDERED: AMILORIDE HCL 5 MG PO SCH (10:00)
[2018-10-19] MEDS ORDERED: DIPHENHYDRAMINE HCL 50 MG/ML VIAL IVP PRN (11:19)
--- NOTE | 2018-10-19 11:23 | History & Physical ---
History of Present Illness - Date of Service Date of Service for History & Physical: 10/19/18 - History of Present Illness Admitting Diagnosis: acute pancreatitis History of Present Illness: Bolivar Ortega is a 53 y.o. M who presented to the ED with abdominal pain 8/10 and vomiting x 24 hours. He has chronic pancreatitis and has had several admissions over the years for flares of chronic pancreatitis. 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 Routinely, he takes Dilaudid 2mg PO twice a day, MS Contin 100mg PO q. 12 hours, Reglan 20mg q. HS, Compazine and Zofran daily. However, he was unable to keep any oral medications down. PCP: Juan Antonio Saturday, D.O. ED Course: -Vitals: T 98.1, HR 75, RR 28, BP 143/117, SpO2 96% on RA -Lipase: 210 -WBC 8.3 -Glucose 210 Was started on IV NS @ 125 ml/hr, Dilaudid 1mg IV q. 4 hours PRN and Zofran 4mg IV q. 4 Hours PRN 10/19/18 1100 Vitals: T 98.8, HR 47, BP 140/52, RR 15, SPO2 98% on RA Pt is sitting up in bed, dry heaving and vomiting during the evaluation. He reports that he does not follow with any specialists. Reports that on a daily basis, he takes Reglan, Compazine and Zofran. Reports that he has been drinking water since coming to the floor and continues to throw up. When recommended to be NPO, pt stated that he doesn't want to experience the dry mouth. He reports that the pain and nausea medications aren't lasting the 4 hours and that they both wear off about 1 hour early. Current pain is 8/10 and his daily average pain is 2-3/10. Travel Screening - Travel/Exposure Within Last 30 Days Have you traveled within the last 30 days?: No - Travel/Exposure Within Last Year Have you traveled outside the [place] in the last year?: No - Additonal Travel Details Have you been exposed to anyone with a communicable illness?: No - Travel Symptoms Symptom Screening: None Review of Systems Reviewed: No additional complaints except as noted below Constitutional: Reports: As per HPI. Denies: Weight change Eyes: Reports: As per HPI ENT: Reports: As per HPI Respiratory: Reports: As per HPI. Denies: Cough Cardiovascular: Reports: As per HPI. Denies: Chest pain Endocrine: Reports: As per HPI. Denies: Fatigue Gastrointestinal: Reports: As per HPI, Abdominal pain, Nausea, Vomiting. Denies: Constipation, Diarrhea, Hematemesis, Hematochezia, Melena Genitourinary: Reports: As per HPI Musculoskeletal: Reports: As per HPI Skin: Reports: As per HPI Neurological: Reports: As per HPI Psychiatric: Reports: As per HPI, Anxiety Hematological/Lymphatic: Reports: As per HPI Past Medical History - SOCIAL HISTORY Smoking Status: Never smoker Alcohol Use: None Drug Use: None - RESPIRATORY Hx Respiratory Disorders: No - CARDIOVASCULAR Hx Cardio Disorders: Yes Hx Deep Vein Thrombosis: Yes - NEURO Hx Neuro Disorders: No - GI Hx GI Disorders: Yes Hx Abdominal Pain: Yes Hx Nausea/Vomiting: Yes Hx Pancreatitis: Yes Comment:: pancreatitis frequently. - Hx Genitourinary Disorders: Yes Hx Kidney Stones: Yes - ENDOCRINE Hx Endocrine Disorders: No Hx Diabetes: No Hx Thyroid Disease: No - MUSCULOSKELETAL Hx Musculoskeletal Disorders: No - PSYCH Hx Psych Problems: No Hx Depression: Yes - HEMATOLOGY/ONCOLOGY Hx Hematology/Oncology Disorders: No Family Medical History Any Significant Family History?: Yes Family Hx Comment (NOT TO BE USED IN PLACE OF ITEMS BELOW): DAUGHTER-CF carrier Hx Alcohol Use: Father Hx Anxiety: Mother Hx Cancer: Grandparents Hx Heart Disease: Father Hx HTN: Grandparents H&P Meds/Allergies - Allergies Allergies: Allergies Allergy/AdvReac Type Severity Reaction Status Date / Time fentanyl [From Duragesic] AdvReac Severe HYPERSENSIT Verified 10/19/18 03:41 IVITY - Active Medications Active Medications: Current Medications Acetaminophen (Tylenol 500mg Tab) 1,000 mg PO Q6H PRN PRN Reason: PAIN - MILD(1-4)/FEVER Lipase/Protease/Amylase (Pancrelipase 5,000 Dr Capsule) 1 each PO WMEALS COUNT INCLUDES THE [facility] Last Admin: 10/19/18 09:36 Dose: Not Given Documented by: Aspirin (Ecotrin (Ec)) 81 mg PO DAILY [facility] Atenolol (Tenormin) 25 mg PO DAILY [facility] Diphenhydramine HCl (Benadryl) 12.5 mg IVP Q6H PRN PRN Reason: NAUSEA Furosemide (Lasix) 20 mg PO DAILY [facility] Hydromorphone HCl (Dilaudid) 1 mg IVP Q2H PRN PRN Reason: PAIN - SEVERE (8-10) Sodium Chloride () 1,000 mls @ 125 mls/hr IV .Q8H PRN PRN Reason: LARGE VOLUME IV Last Admin: 10/19/18 06:56 Dose: 125 mls/hr Documented by: Metoclopramide HCl (Reglan) 20 mg PO QHS [facility] Metoclopramide HCl (Reglan) 5 mg IVP Q6H PRN PRN Reason: NAUSEA Ondansetron HCl (Zofran) 4 mg IVP Q6H PRN PRN Reason: NAUSEA Pantoprazole Sodium (Protonix) 40 mg PO BID [facility] Pantoprazole Sodium (Protonix Iv) 40 mg IVP Q12H [facility] Prochlorperazine Maleate (Compazine) 5 mg PO BID [facility] Temazepam (Restoril) 15 mg PO QHS PRN PRN Reason: INSOMNIA Physical Exam - Vital Signs Vital Signs: Vital Signs - Last 24 Hrs Temp Pulse Pulse Resp BP BP Pulse Ox 10/19/18 08:00 98.8 F 47 L 15 140/52 98 10/19/18 07:29 77 20 10/19/18 06:33 97.7 F 77 20 146/89 100 10/19/18 05:35 62 20 124/78 95 10/19/18 04:29 75 10/19/18 04:22 98.1 F 20 137/96 94 L 10/19/18 03:28 122 H 28 H 143/117 96 - General General Appearance: Alert, Oriented x3, Cooperative, Moderate distress Limitations: No limitations - Head Head exam: Normal inspection - Eye Eye exam: Normal appearance, PERRL, EOMI Pupils: Normal accommodation - ENT ENT exam: Normal exam, Mucous membranes moist Ear exam: Normal external inspection. negative: External canal tenderness Nasal Exam: Normal inspection. negative: Discharge, Sinus tenderness Mouth exam: Normal external inspection, Tongue normal Teeth exam: Normal inspection. negative: Dental caries Throat exam: Normal inspection. negative: Tonsillar erythema, Tonsillar exudate - Neck Neck exam: Normal inspection, Full ROM. negative: Tenderness - Respiratory Respiratory exam: negative: Accessory muscle use, Respiratory distress - Cardiovascular Cardiovascular Exam: Normal rhythm - GI/Abdominal GI/Abdominal exam: Soft, Normal bowel sounds, Tenderness, Other (dry heaving) - Rectal Rectal exam: Deferred - exam: Deferred - Extremities Extremities exam: Normal inspection, Full ROM, Normal capillary refill. negative: Tenderness - Back Back exam: Reports: Normal inspection, Full ROM. Denies: Muscle spasm, Rash noted, Tenderness - Neurological Neurological exam: Alert, CN II-XII intact, Normal gait, Oriented X3 - Psychiatric Psychiatric exam: Anxious - Skin Skin exam: Dry, Intact, Normal color, Warm Results - Labs Result Diagrams: 10/19/18 03:41 10/19/18 03:41 Labs Last 24 Hours: Laboratory Results - last 24 hr 10/19/18 10/19/18 10/19/18 03:41 03:41 04:27 WBC 8.3 RBC 5.19 Hgb 15.0 Hct 43.4 MCV 83.6 MCH 28.9 MCHC 34.6 RDW 14.0 Plt Count 289 MPV 10.1 Gran % 66.9 Lymphocytes % 25.7 Monocytes % 7.1 Eosinophils % 0.1 Basophils % 0.2 Absolute Neutrophils 5.56 Sodium 135 L Potassium 3.7 Chloride 97 L Carbon Dioxide 20.0 L Anion Gap 18.0 H BUN 20 Creatinine 1.1 Estimated GFR > 60 Random Glucose 210 H Calcium 9.7 Total Bilirubin 0.80 Direct Bilirubin 0.3 AST 25 ALT 19 Alkaline Phosphatase 47 Total Protein 7.5 Albumin 4.7 Lipase 216 H Urine Color Straw Urine Appearance Clear Urine pH 5.5 Ur Specific [place] >= 1.030 Urine Protein Trace H Urine Glucose (UA) Negative Urine Ketones Negative Urine Blood Moderate Urine Nitrite Negative Urine Bilirubin Small H Urine Urobilinogen 1.0 Ur Leukocyte Esterase Negative Urine RBC 10 - 15 Urine WBC 0 - 2 Ur Epithelial Cells 0 - 2 Urine Bacteria None seen VTE H&P Assessment - Risk for VTE Risk for VTE: Yes Risk Level: Low Risk Assessment Date: 10/19/18 Risk Assessment Time: 11:00 VTE Orders Placed or Will Be Placed: Yes VTE Reason for No Prophylaxis: Not Indicated Plan - Inpatient Certification Inpatient Certification: Admit to inpatient care: Based on my medical assessment, after consideration of patient's risk factors (age, co-morbidities and patient presenting symptoms and acuity), I expect that this patient will remain in the hospital greater than or equal to two midnights and that the services needed warrant inpatient care because: Patient Risk Factors: [] Estimated length of stay: [] The patient may reasonably be expected to be discharged or transferred to a hospital within 96 hours after admission to [facility]. Services needed: [] Post hospital care (if known): [] I certify that my determination is in accordance with my understanding of Medicare requirements for reasonable and necessary inpatient services. - Detailed Diagnosis and Plan (1) Chronic narcotic use Current Visit: Yes Status: Acute Base Code: F11.90 - OPIOID USE, UNSPECIFIED, UNCOMPLICATED Comment: 10/19/18: -Holding home dose of oral Dilaudid 2mg PO BID and MS Contin 100mg PO q. 12 hours d/t N/V -Increased frequency of Dilaudid 1mg IV from q. 4 hours PRN to 2 hours PRN -Will resume home doses of oral Dilaudid and MS Contin once N/V has improved and will change frequency of IV Dilaudid. (2) Intractable vomiting Current Visit: No Status: Acute Base Code: R11.10 - VOMITING, UNSPECIFIED Comment: 10/19/18 -Reports taking Reglan, Compazine and Zofran routinely at home -Oral medications changed to IV as pt is currently NPO -Start Benadryl 12.5mg IV q. 6 hours PRN -Reglan 5mg IV q. 6 hours PRN -Zofran 4mg IV q. 6 hours PRN -Protonix 40mg IV q. 12 hours -CLD order changed to NPO with ice chips (3) Acute on chronic pancreatitis Current Visit: No Status: Resolved Base Code: K85.90 - ACUTE PANCREATITIS WITHOUT NECROSIS OR INFECTION, UNSP; K86.1 - OTHER CHRONIC PANCREATITIS Comment: 10/19/18: -Hx of acute on chronic pancreatitis flares - pt has a protracted history of recurring pancreatitis as a result of being a CF carrier. No hx of ETOH Hx of cholecystectomy. - Lipase 210 -Continue NS IV @ 125ml/hr -Benadryl, Reglan and Zofran for nausea, Dilaudid 1mg q. 2 hours PRN for pain - pancrealipase to be resumed once he can tolerate PO. -Currently NPO with ice chips 07/09/17 -recurring issues with pancreatitis r/t CF (no hx of ETOH) -IVF changed to 40 mEq NS 1000ml @ 125, Dilaudid 2mg q6hr and Dilaudid 2mg Q4 PRN, labs have improved, no evidence of active pancreatitis -pt updated that POC is to return to PO medications for baseline mgt -pt reports nausea is a direct relation to abd pain, that is abd pain is controlled nausea will be controlled -attempting to advance diet to CLR and PO home pain dosing -Recheck Lipase levels in the morning (4) DVT prophylaxis Current Visit: No Status: Acute Base Code: [id number] - Comment: 10/19/18: -Low to moderate risk -lovenox 40meq daily (5) Full code status Current Visit: Yes Status: Acute Base Code: Z78.9 - OTHER SPECIFIED HEALTH STATUS Comment: 10/20/18 - FULL CODE
[2018-10-19] MEDS: METOCLOPRAMIDE HCL 10 MG/2 ML VIAL IVP PRN ×2 (11:28→19:38)
[2018-10-19] MEDS: HYDROMORPHONE HCL 2 MG/ML VIAL IVP PRN ×7 (11:30→23:53)
[2018-10-19] MEDS: ASPIRIN 81 MG TABEC PO SCH (11:31)
[2018-10-19] MEDS: FUROSEMIDE 20 MG TABLET PO SCH (11:31)
[2018-10-19] MEDS: PANTOPRAZOLE SODIUM 40 MG TABLET PO SCH (11:32)
[2018-10-19] MEDS: ATENOLOL 25 MG TABLET PO SCH (11:32)
[2018-10-19] MEDS: PANTOPRAZOLE SODIUM IV 40 MG VIAL IVP SCH (11:33)
[2018-10-19] MEDS: PROCHLORPERAZINE MALEATE 10 MG TABLET PO SCH (13:35)
[2018-10-19] MEDS: ONDANSETRON HCL IV 4 MG/2 ML VIAL IVP PRN ×2 (15:53→23:50)
[2018-10-19] MEDS: ENOXAPARIN 40 MG/0.4 ML SYR SQ SCH (19:50)
[2018-10-19] MEDS ORDERED: METOCLOPRAMIDE 10 MG TABLET PO SCH (22:00)
[2018-10-19] MEDS ORDERED: POTASSIUM CITRATE PO SCH (22:00)
[2018-10-19] MEDS ORDERED: TEMAZEPAM 15 MG CAPSULE PO PRN (22:00)
[2018-10-20] MEDS: PANTOPRAZOLE SODIUM IV 40 MG VIAL IVP SCH ×2 (00:04→13:19)
[2018-10-20] MEDS: HYDROMORPHONE HCL 2 MG/ML VIAL IVP PRN ×9 (01:57→23:56)
[2018-10-20] MEDS: METOCLOPRAMIDE HCL 10 MG/2 ML VIAL IVP PRN (06:21)
[2018-10-20 06:31] LABS: ABSOLUTE NEUTROPHIL COUNT 4.03; EOS % 0.2 % (0-6); GRAN % 64.5 % (47-80); HEMATOCRIT 37.4 % (42.0-52.0); HEMOGLOBIN 12.9 gm/dl (14.0-18.0); LYMPH % 27.9 % (16-45); MEAN CELL VOLUME 85.2 fl (81-97); MEAN CORPUSCULAR HEMOGLOBIN 29.3 pg (27-33); MEAN CORPUSCULAR HGB CONC 34.5 g/dl (32-36); MEAN PLATELET VOLUME 9.9 fl (7.4-10.4); MONO % 7.4 % (0-9); PLATELET COUNT 225 K/uL (130-400); RED BLOOD COUNT 4.39 M/uL (4.40-5.70); RED CELL DISTRIBUTION WIDTH 13.9 % (11.5-14.5); WHITE BLOOD COUNT W/O DIFF 6.2 K/uL (4.2-12.2)
[2018-10-20 06:49] LABS: ALB/GLOB RATIO 1.7 (1.1-1.8); ALKALINE PHOSPHATASE 41 U/L (40-129); ALT/SGPT 16 U/L (<41); AST/SGOT 19 U/L (10.0-50.0); BLOOD UREA NITROGEN 16 mg/dL (6-20); CREATININE 0.8 mg/dL (0.7-1.2); EST GLOMERULAR FILTRATION RATE > 60 mL/min; GLUCOSE,RANDOM 104 mg/dL (74-109); LIPASE 225 U/L (13-60); TOTAL PROTEIN 6.3 g/dL (6.6-8.7)
[2018-10-20] MEDS: 0.9 % SODIUM CHLORIDE 1000ML 1,000 ML IV PRN ×3 (07:20→23:58)
[2018-10-20] MEDS: ENOXAPARIN 40 MG/0.4 ML SYR SQ SCH (09:55)
--- NOTE | 2018-10-20 10:47 | Physician Progress Note ---
Subjective - Date Date of Physician Progress Note: 10/20/18 - Subjective Subjective Comment: Pt was lying in bed, no apparent distress. He denied having any N/V in the last few hours. + diarrhea. Pain had improved and was currently 4/10. Baseline is 2- 3/10. Has been NPO with ice chips only and would like to start drinking juice. Staff reports that he has been requesting IV Dilaudid every 2 hours around the clock. Oral meds had been held so he had not had his regular dose of MS Contin for approximately 2 days. Discussed advancing diet to clear liquids and starting home dose of MS Contin again while continuing to hold all other orals. Radiation: Abdomen Severity scale (1-10): 4 Quality: Sharp Associated symptoms: Nausea/vomiting Objective - Multidiciplinary Team Multidiciplinary Team: Nursing - Vital Signs Vital Signs: Vital Signs - Last 24 Hrs Temp Pulse Resp BP Pulse Ox 10/20/18 08:40 98.1 F 51 L 16 124/71 97 10/20/18 07:22 70 10/20/18 04:25 98.0 F 45 L 14 144/75 98 10/20/18 00:05 98.0 F 50 L 16 165/86 99 10/19/18 21:00 55 L 18 10/19/18 19:50 98.1 F 55 L 18 149/65 100 10/19/18 16:00 97.9 F 60 15 143/66 96 - General General Appearance: Alert, Oriented x3, Cooperative, No acute distress Limitations: No limitations - Head Head exam: Normal inspection - Eye Eye exam: Normal appearance, PERRL, EOMI Pupils: Normal accommodation - ENT ENT exam: Normal exam, Mucous membranes moist Ear exam: Normal external inspection. negative: External canal tenderness Nasal Exam: Normal inspection. negative: Discharge, Sinus tenderness Mouth exam: Normal external inspection, Tongue normal Teeth exam: Normal inspection. negative: Dental caries Throat exam: Normal inspection. negative: Tonsillar erythema, Tonsillar exudate - Neck Neck exam: Normal inspection, Full ROM. negative: Tenderness - Respiratory Respiratory exam: negative: Accessory muscle use, Respiratory distress - Cardiovascular Cardiovascular Exam: Normal rhythm - GI/Abdominal GI/Abdominal exam: Soft, Normal bowel sounds - Rectal Rectal exam: Deferred - exam: Deferred - Extremities Extremities exam: Normal inspection, Full ROM, Normal capillary refill. negative: Tenderness - Back Back exam: Reports: Normal inspection, Full ROM. Denies: Muscle spasm, Rash noted, Tenderness - Neurological Neurological exam: Alert, CN II-XII intact, Oriented X3 - Psychiatric Psychiatric exam: Normal affect, Normal mood - Skin Skin exam: Dry, Intact, Normal color, Warm Assessment and Plan - Assessment and Plan (1) Acute on chronic pancreatitis Current Visit: No Status: Resolved Base Code: K85.90 - ACUTE PANCREATITIS WITHOUT NECROSIS OR INFECTION, UNSP; K86.1 - OTHER CHRONIC PANCREATITIS Comment: 10/20/18: -Hx of acute on chronic pancreatitis flares - pt has a protracted history of recurring pancreatitis as a result of being a CF carrier. No hx of ETOH Hx of cholecystectomy. - Lipase 210 --> 225 -Continue NS IV @ 125ml/hr -Benadryl, Reglan and Zofran for nausea, Dilaudid 1mg q. 2 hours PRN for pain - pancrealipase to be resumed once he can tolerate PO. -Currently NPO with ice chips (2) Chronic narcotic use Current Visit: Yes Status: Acute Base Code: F11.90 - OPIOID USE, UNSPECIF IED, UNCOMPLICATED Comment: 10/20/18: -Per [facility], pt's home dose of MS Contin was reduced to 80mg BID in September and quantity of oral Dilaudid 2mg was reduced to #45 per month -N/V improved. Restart MS Contin 80mg BID. -Pt takes Oral Dilaudid as needed, will continue to hold at this time -IV Dilaudid 1mg changed from q. 2 hours PRN to q. 4 hours PRN (3) Intractable vomiting Current Visit: No Status: Acute Base Code: R11.10 - VOMITING, UNSPECIFIED Comment: 10/20/18 -Improved -Continue IV Reglan, Zofran and Benadryl as Diet being advanced to clear liquids (4) DVT prophylaxis Current Visit: No Status: Acute Base Code: [id number] - Comment: 10/20/18: -Low to moderate risk -lovenox 40meq daily (5) Full code status Current Visit: Yes Status: Acute Base Code: Z78.9 - OTHER SPECIFIED HEALTH STATUS Comment: 10/20/18 - FULL CODE Results - Labs Result Diagrams: 10/20/18 06:15 10/20/18 06:15 Labs Last 24 Hours: Laboratory Results - last 24 hr 10/20/18 10/20/18 10/20/18 06:00 06:15 06:15 WBC 6.2 RBC 4.39 L Hgb 12.9 L Hct 37.4 L MCV 85.2 MCH 29.3 MCHC 34.5 RDW 13.9 Plt Count 225 MPV 9.9 Gran % 64.5 Lymphocytes % 27.9 Monocytes % 7.4 Eosinophils % 0.2 Basophils % 0.0 Absolute Neutrophils 4.03 Sodium 138 Potassium 3.9 Chloride 102 Carbon Dioxide 23.0 Anion Gap 13.0 BUN 16 Creatinine 0.8 Estimated GFR > 60 Random Glucose 104 Calcium 8.8 Total Bilirubin 0.80 AST 19 ALT 16 Alkaline Phosphatase 41 Total Protein 6.3 L Albumin 4.0 Globulin 2.3 Albumin/Globulin Ratio 1.7 Lipase Cancelled 225 H DVT/PE Assessment - Risk for VTE Risk for VTE: No Risk Level: Low Risk Assessment Date: 10/19/18 Risk Assessment Time: 11:00 VTE Orders Placed or Will Be Placed: Yes VTE Reason for No Prophylaxis: Not Indicated - Active Medicaitons Current Medications: Current Medications Acetaminophen (Tylenol 500mg Tab) 1,000 mg PO Q6H PRN PRN Reason: PAIN - MILD(1-4)/FEVER Lipase/Protease/Amylase (Pancrelipase 5,000 Dr Capsule) 1 each PO WMEALS [facility] Last Admin: 10/19/18 09:36 Dose: Not Given Documented by: Aspirin (Ecotrin (Ec)) 81 mg PO DAILY [facility] Last Admin: 10/19/18 11:31 Dose: Not Given Documented by: Atenolol (Tenormin) 25 mg PO DAILY [facility] Last Admin: 10/19/18 11:32 Dose: Not Given Documented by: Diphenhydramine HCl (Benadryl) 12.5 mg IVP Q6H PRN PRN Reason: NAUSEA Enoxaparin Sodium (Lovenox) 40 mg SQ DAILY [facility] Last Admin: 10/20/18 09:55 Dose: 40 mg Documented by: Furosemide (Lasix) 20 mg PO DAILY [facility] Last Admin: 10/19/18 11:31 Dose: Not Given Documented by: Hydromorphone HCl (Dilaudid) 1 mg IVP Q4H PRN PRN Reason: PAIN - SEVERE (8-10) Sodium Chloride () 1,000 mls @ 125 mls/hr IV .Q8H PRN PRN Reason: LARGE VOLUME IV Last Admin: 10/20/18 07:20 Dose: 125 mls/hr Documented by: Metoclopramide HCl (Reglan) 20 mg PO QHS [facility] Metoclopramide HCl (Reglan) 5 mg IVP Q6H PRN PRN Reason: NAUSEA Last Admin: 10/20/18 06:21 Dose: 5 mg Documented by: Morphine Sulfate () 60 mg PO Q12HR [facility] Morphine Sulfate (Ms Contin) 15 mg PO Q12HR [facility] Ondansetron HCl (Zofran) 4 mg IVP Q6H PRN PRN Reason: NAUSEA Last Admin: 10/19/18 23:50 Dose: 4 mg Documented by: Pantoprazole Sodium (Protonix) 40 mg PO BID [facility] Last Admin: 10/19/18 11:32 Dose: Not Given Documented by: Pantoprazole Sodium (Protonix Iv) 40 mg IVP Q12H [facility] Last Admin: 10/20/18 00:04 Dose: 40 mg Documented by: Prochlorperazine Maleate (Compazine) 5 mg PO BID [facility] Last Admin: 10/19/18 13:35 Dose: Not Given Documented by: Temazepam (Restoril) 15 mg PO QHS PRN PRN Reason: INSOMNIA AMI Plan - Labs Result Diagrams: 10/20/18 06:15 10/20/18 06:15
[2018-10-20] MEDS ORDERED: HYDROMORPHONE HCL 2MG TABLET PO SCH (11:00)
[2018-10-20] MEDS: MORPHINE SULFATE 15 MG TABLET.ER PO SCH ×2 (11:20→21:55)
[2018-10-20] MEDS: MORPHINE SULFATE 30MG TABLET.ER PO SCH ×2 (11:20→21:55)
[2018-10-20] MEDS: [UNRECOGNIZED DRUG - REMARK] PO SCH ×2 (13:19→17:20)
[2018-10-20] MEDS: PROCHLORPERAZINE MALEATE 10 MG TABLET PO SCH (21:53)
[2018-10-20] MEDS: PANTOPRAZOLE SODIUM 40 MG TABLET PO SCH (21:58)
[2018-10-21] MEDS: HYDROMORPHONE HCL 2 MG/ML VIAL IVP PRN ×3 (03:50→12:29)
[2018-10-21] MEDS: 0.9 % SODIUM CHLORIDE 1000ML 1,000 ML IV PRN (08:12)
[2018-10-21] MEDS: [UNRECOGNIZED DRUG - REMARK] PO SCH ×2 (08:42→12:30)
[2018-10-21] MEDS: PROCHLORPERAZINE MALEATE 10 MG TABLET PO SCH (10:37)
[2018-10-21] MEDS: ASPIRIN 81 MG TABEC PO SCH (10:37)
[2018-10-21] MEDS: FUROSEMIDE 20 MG TABLET PO SCH (10:37)
[2018-10-21] MEDS: ATENOLOL 25 MG TABLET PO SCH (10:38)
[2018-10-21] MEDS: MORPHINE SULFATE 30MG TABLET.ER PO SCH (10:40)
[2018-10-21] MEDS: PANTOPRAZOLE SODIUM 40 MG TABLET PO SCH (10:41)
[2018-10-21] MEDS: MORPHINE SULFATE 15 MG TABLET.ER PO SCH (10:41)
[2018-10-21] MEDS: ENOXAPARIN 40 MG/0.4 ML SYR SQ SCH (10:41)
--- NOTE | 2018-10-21 13:53 | Discharge Note ---
VTE H&P Assessment - Risk for VTE Risk for VTE: Yes Risk Level: Low Risk Assessment Date: 10/19/18 Risk Assessment Time: 11:00 VTE Orders Placed or Will Be Placed: Yes VTE Reason for No Prophylaxis: Not Indicated Discharge Medications - Discharge Medications Home Medications: Ambulatory Orders Amiloride HCl 5 mg PO DAILY 07/19/13 [Last Taken 10/18/18] Aspirin 81 mg PO DAILY 07/19/13 [Last Taken 10/18/18] Atenolol 25 mg PO DAILY 07/19/13 [Last Taken 10/18/18] Fenofibrate Nanocrystallized [Tricor] 145 mg PO DAILY 07/19/13 [Last Taken 10/18/18] Lipase/Protease/Amylase [Pancrelipase 5,000 Dr Capsule] 3 tab PO WMEALS 07/19/13 [Last Taken 10/18/18] Metoclopramide HCl [Reglan] 20 mg PO QHS 07/19/13 [Last Taken 10/18/18] Ondansetron HCl [Zofran] 8 mg PO BID 07/19/13 [Last Taken 10/18/18] Potassium Citrate [Potassium Citrate ER] 20 meq PO QAM 07/19/13 [Last Taken 10/18/18] Prochlorperazine Maleate 5 mg PO BID 07/19/13 [Last Taken 10/18/18] Furosemide [Lasix] 20 mg PO DAILY 07/29/18 [Last Taken 10/18/18] Hydromorphone HCl [Dilaudid] 2 mg PO BID 07/29/18 [Last Taken 10/18/18] Pantoprazole Sodium 40 mg PO BID 07/29/18 [Last Taken 10/18/18] Morphine Sulfate [Ms Contin] 80 mg PO Q12H #0 tab 10/21/18 [Last Taken 10/18/18] Discharge Note - Date Date of Discharge Note: 10/21/18 Disposition: Home, Self-Care Instructions: Pancreatitis (DC), Narcotic Pain Management (DC) Additional Instructions: follow up with Dr Carranza in 3to 7 days continue home pain meds like he was using them before admission increase his pancreatic enzymes to 4 pills before meals Referrals: BENNY CARRANZA [Primary Care Provider] - Activity at Discharge: Increase Activity as Tolerated Diet at Discharge: Low Fat, Low Cholesterol
--- NOTE | 2018-10-22 14:51 | Discharge Summary ---
DATE: 10/21/2018 at 3 p.m. DISCHARGE DIAGNOSES: 1. Acute on chronic pancreatitis. 2. Long-term narcotic use, being weaned off by Dr. Ogden, according to the patient. 3. Gastroesophageal reflux disease. ATTENDING PHYSICIAN: Ej Harrison DO REASON FOR HOSPITALIZATION: Abdominal pain. The patient has a history of recurrent pancreatitis and he is a cystic fibrosis carrier. No alcohol. No bladder problems. His lipase was slightly elevated when he came into the emergency department with severe abdominal pain and vomiting. He was admitted to the hospital for IV fluids, pain control, and further evaluation of his pancreatitis. SIGNIFICANT FINDINGS: His most recent set of labs showed WBC 6200, hemoglobin 12.9, sodium 138, potassium 3.9, BUN 16, creatinine 0.8. The lipase was 225. Urine 10-15 RBCs, no WBCs, no bacteria, specific gravity 1.030. HOSPITAL COURSE: The patient gradually improved. He said it is tolerable at this time. He is eating a full liquid diet. He would like to go home with his pain management that he has set up by Dr. Ogden. He is taking 80 of MS Contin twice a day and Dilaudid 2 mg pills for breakthrough pain. We will continue on that dose. He says he is weaning off. We will let Dr. Ogden continue the weaning process. Advised the patient it is a wonderful thing to do because long-term the narcotics are not so beneficial at this point. He seems to be in agreement with that plan. We will give him an off-work slip until Saturday. His family doctor can extend that if necessary. The patient is to follow up with Dr. Ogden in 3-7 days. Continue his home pain medication that he had been using before admission. Increase his pancreatic enzymes to 4 pills before meals. Off work until Saturday. Continue his home medications as prior before admission. MTDD
== END 2018-10-21 15:30 | disposition home or self-care (01) | DRG 440 ==
LOC: ER 03:23 → MEDSURG 06:27
PROVIDERS: ADMIT Internal Medicine; ATTEND Internal Medicine
DX: K85.90 Acute pancreatitis without necrosis or infection, unspecified (principal); K86.1 Other chronic pancreatitis; R11.2 Nausea with vomiting, unspecified; F11.90 Opioid use, unspecified, uncomplicated; R19.7 Diarrhea, unspecified; K21.9 Gastro-esophageal reflux disease without esophagitis; Z14.1 Cystic fibrosis carrier; Z90.49 Acquired absence of other specified parts of digestive tract
CPT/HCPCS: 80048; 80053; 80076; 81001; 83690; 85025; 96374; 96375; 99223; 99233; 99239; 99285; C9113; J1650; J2405; J2765; J7030